=== PATIENT | female | born 1930 | race Caucasian/White ===

== ENCOUNTER → 2016-09-30 | Outpatient (CLI) | payer OTHER ==
[~2016-09-30] MED LIST: CALC500C3 PO; CHOL100027 PO; CYAN3INJ IM; CYNI1000 IM; DABI150C PO; DIGO0.122 PO; DILT120C PO; DOCU-94 PO; ESCI1TAB9 PO; FSM70 PO; HYDR-5688 PO; LEVO-217 PO; LEVO150T PO; LNX125 PO; LOPE1CAP6 PO; MAGN1TAB19 PO; METF-383 PO; METO100T14 PO; MULT-190 PO; MULTCAP7 PO; MULTTAB66 PO; OMEP40CA41 PO; PRVHFAIN INH; TYL325X PO
[2016-09-30 18:31] LABS: URINE APPEARANCE CLEAR (CLEAR); URINE BILIRUBIN NEG (NEG); URINE COLOR YELLOW; URINE EPITHELIAL CELL AUTO 0-5 /lpf (0-5); URINE NITRITE NEG (NEG); URINE PH 7.5 (4.5-7.5); URINE SPECIFIC GRAVITY 1.007 (1.000-1.030); UROBILINOGEN NEG (NEG)
[2016-09-30 18:35] LABS: MANUAL MICROSCOPIC REQUIRED? NO; REVIEW REQ? NO
== END | disposition home or self-care (01) ==
LOC: C.LABSPEC 10:34
PROVIDERS: ATTEND Family Medicine
DX: R41.0 Disorientation, unspecified (principal)

== ENCOUNTER 2016-11-24 13:56 | Inpatient (IN) | payer OTHER ==
[~2016-11-24] VITALS: Ht 162.6 cm; Wt 50.0 kg
[~2016-11-24 13:56] MED LIST changes: -CYNI1000 IM; -FSM70 PO; -HYDR-5688 PO; -LEVO150T PO; -LNX125 PO; -MULT-190 PO; -MULTTAB66 PO
[2016-11-24] MEDS ORDERED: ONDANSETRON INJ 2 MG/ML 2 ML VIAL IV STA (14:32)
[2016-11-24] MEDS ORDERED: MoRPHine SULFATE 2 MG/ML CARP IV STA (14:32)
[2016-11-24] MEDS ORDERED: SODIUM CHLORIDE 0.9% 1000ML 1,000 ML IV ONE (14:45)
--- NOTE | 2016-11-24 14:47 | EMERGENCY ROOM VISIT NOTE ---
ED Visit Note First contact with patient: 14:05 I did evaluate and examine this patient myself. I did guide management for the patient. I agree with the PA's assessment as discussed. Please see the PAs dictation for further details. I did independently review the x-rays and blood work. The patient has a hip fracture. She will be hospitalized.
[2016-11-24 15:08] LABS: HEMATOCRIT 39.2 % (37-47); MEAN CELL VOLUME 88.7 fL (80-100); MEAN CORPUSCULAR HEMOGLOBIN 30.5 pg (25-34); MEAN CORPUSCULAR HGB CONC 34.4 g/dl (32-36); MEAN PLATELET VOLUME 10.1 fL (7.4-10.4); PLATELET COUNT 309 K/uL (130-400); RED BLOOD COUNT 4.42 M/uL (4.2-5.4); WHITE BLOOD COUNT 10.47 K/uL (4.8-10.8)
[2016-11-24] MEDS ORDERED: LNX125 PO (15:11)
[2016-11-24] MEDS ORDERED: CYNI1000 IM (15:11)
[2016-11-24] MEDS ORDERED: LEVO150T PO (15:11)
[2016-11-24] MEDS ORDERED: MULTTAB66 PO (15:11)
--- NOTE | 2016-11-24 15:12 | DIAGNOSTIC IMAGING REPORT ---
CHEST ONE VIEW PORTABLE CLINICAL HISTORY: Right hip fracture. PREOPERATIVE CHEST COMPARISON STUDY: 02/27/2016 FINDINGS: The cardiac and mediastinal contours remain stable. There is a right subclavian dual-chamber central venous pacemaker present. There is no failure. There is no focal pulmonary consolidation. No pleural effusions are visualized.[ IMPRESSION: No active disease in the chest. Electronically signed by: Piyush Hitchcock M.D. 11/24/2016 3:11 PM Dictated Date/Time: 11/24/2016 3:10 PM
[2016-11-24 15:26] LABS: BUN/CREATININE RATIO 14.7 (10-20); CALCIUM 9.6 mg/dl (8.5-10.1); CREATININE 1.1 mg/dl (0.60-1.20)
[2016-11-24 15:28] LABS: URINE APPEARANCE CLEAR (CLEAR); URINE BILIRUBIN NEG (NEG); URINE COLOR YELLOW; URINE EPITHELIAL CELL AUTO >30 /lpf (0-5); URINE NITRITE NEG (NEG); URINE SPECIFIC GRAVITY 1.016 (1.000-1.030); UROBILINOGEN NEG (NEG)
[2016-11-24 15:35] LABS: MANUAL MICROSCOPIC REQUIRED? NO; REVIEW REQ? YES
[2016-11-24] MEDS ORDERED: ALUMINUM/MAGNESIUM/SIMETH (MAALOX MAX) 30 ML UDC PO PRN (16:15)
[2016-11-24] MEDS ORDERED: MoRPHine SULFATE 2 MG/ML CARP IV PRN (16:15)
[2016-11-24] MEDS ORDERED: ONDANSETRON INJ 2 MG/ML 2 ML VIAL IV PRN (16:15)
[2016-11-24] MEDS ORDERED: MAGNESIUM HYDROXIDE SUSP 30 ML UDC PO PRN (16:15)
[2016-11-24] MEDS ORDERED: DEXTROSE 50% 50 ML SYR IV PRN (16:30)
[2016-11-24] MEDS ORDERED: GLUCAGON FOR INJ 1 MG VIAL SQ PRN (16:30)
[2016-11-24] MEDS ORDERED: GLUCOSE 10 TABS/TUBE PO PRN (16:30)
[2016-11-24] MEDS ORDERED: CALCIUM CARBONATE 500 MG CHEWABLE PO PRN (16:30)
[2016-11-24] MEDS ORDERED: GLUCOSE 40% GEL 15 GM TUBE PO PRN (16:30)
[2016-11-24] MEDS ORDERED: POLYETHYLENE (MIRALAX) 17 GM PACK PO PRN (16:45)
[2016-11-24] MEDS ORDERED: DOCUSATE SODIUM 100 MG CAP PO PRN (16:45)
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
[2016-11-24 17:13] LABS: INR 1.3 (0.9-1.1); PARTIAL THROMBOPLASTIN RATIO 1.9; PROTHROMBIN TIME (PATIENT) 13.7 SECONDS (9.0-12.0)
[2016-11-24] MEDS ORDERED: ACETAMINOPHEN 325 MG TAB PO PRN (17:30)
[2016-11-24] MEDS ORDERED: HYDROCODONE/ACETAMOPHEN 5/325MG TAB PO PRN (17:30)
[2016-11-24 18:00] VITALS: BP 171/78; PULSE 65; TEMP 36.8; O2SAT 94
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
[2016-11-24 18:40] VITALS: BP 171/78; PULSE 65; TEMP 36.8; O2SAT 94; Ht 162.6 cm; Wt 50.0 kg
[2016-11-24] MEDS: INSULIN ASPART 100 UNITS/ML 3 ML PEN SC SCH (21:00)
[2016-11-24] MEDS: METOPROLOL TARTRATE 100 MG TAB PO SCH (21:00)
--- NOTE | 2016-11-24 22:03 | EMERGENCY ROOM VISIT NOTE ---
ED Visit Note First contact with patient: 14:05 Chief Complaint: Hip fracture. History of Present Illness: Ms. Gale is an 86-year-old white female who is brought into the ED via wheelchair accompanied by her daughter. Patient and daughter reports that she has been feeling fine and yesterday she was at her assisted living facility when another client accidentally knocked her over on a motorized wheelchair. There was no reported of head strike or loss of consciousness at the time of the injury. She did fall onto her right elbow and right hip. She immediately complained of pain in the right elbow. Daughter picked her mother [facility] earlier today and the patient was seen at her PCPs office. They were sent to the hospital for x-rays of her elbow and hip. She was found to have no fractures in her elbow but a right subcapital hip fracture but no dislocation. Daughter reports that her PCP office was contacted who contacted her orthopedic physician's office, [facility], and was told to bring her mother to the emergency department. Currently patient is complaining of right hip and elbow pain. She currently describes her pain as a sharp sensation in both areas. She rates her overall discomfort at 6/10. She denies radiation of her hip or shoulder pain. Both areas hurt with palpation and all attempts of movement. She has not had any medication for pain prior to arrival at the hospital. Additionally during my review of symptoms she also reports that she felt short of breath. She does not remember when this started. Daughter reports she had not reported this earlier. She denies any associated headache, dizziness, lightheadedness, visual changes, hearing changes, difficulty speaking, difficulty swallowing, difficulty coordinating body movements, nausea, vomiting, chest pain, nausea, vomiting, extremity weakness/numbness. Review of Systems: As noted above in history of present illness. All body systems were reviewed and found to be negative as noted above. Past Medical History: (1) Atrial fibrillation (2) Bronchitis (3) DIAB NAT WO COMPL, TYPE II OR UNSPEC TYPE, NOT UNCNTRLD (4) Hip fracture (5) HYPERTENSION NOS (6) HYPOTHYROIDISM NOS (7) MACULAR DEGENERATION NOS (8) PERSONAL HX OF TIA,& CEREBRAL INFARCTION W/OUT RES DEFICITS (9) PURE HYPERCHOLESTEROLEM Current Medications: Medications Dose Route/Sig Max Daily Dose Days Date Category Digoxin 0.125 Mg Tab 0.125 Mg PO MWF 11/24/16 Reported Cyanocobalamin 1,000 Mcg/Ml Inj 1,000 Mcg IM MONTHLY 11/24/16 Reported I-Ruth (Multiple Vitamins W/ Minerals) 1 Tab Tab 1 Tab PO BID 11/24/16 Reported Synthroid (Levothyroxine Sodium) 150 Mcg Tab 150 Mcg PO DAILY 11/24/16 Reported Colace (Docusate Sodium) 100 Mg Cap 100 Mg PO BID PRN 30 05/31/16 Reported Tums (Calcium Carbonate (Antacid)) 500 Mg Chw 500 Mg PO TID PRN 05/31/16 Reported Vitamin D 1000 Unit (Cholecalciferol) 1,000 Unit Cap 1,000 Inter.unit PO DAILY 02/26/16 Reported Anti-Diarrheal (Loperamide Hcl) 2 Mg Cap 2 Mg PO DAILY 02/26/16 Reported Prilosec (Omeprazole) 40 Mg Cap 40 Mg PO DAILY 02/26/16 Reported Tylenol (Acetaminophen) 325 Mg Tab 650 Mg PO Q6H PRN 04/21/14 Rx Lopressor (Metoprolol Tartrate) 100 Mg Tab 100 Mg PO BID 04/15/14 Reported Magnesium Oxide (Magnesium Oxide (Mg Supplement) 400 Mg Tab 400 Mg PO BID 04/15/14 Reported Lexapro (Escitalopram Oxalate) 10 Mg Tab 10 Mg PO DAILY 04/15/14 Reported Diltiazem Hcl Er (Diltiazem Hcl Coated Beads) 120 Mg Cap 120 Mg PO DAILY 04/15/14 Reported Pradaxa (Dabigatran Etexilate Mesylate) 150 Mg Cap 150 Mg PO BID 02/26/14 Reported Glucophage (Metformin Hcl) 850 Mg Tab 850 Mg PO BIDM 08/31/12 Reported Allergies to Medications: Codeine, penicillin. Social History: Patient is not employed; she lives in an assisted living facility and feels safe in her home environment; she denies tobacco and alcohol use. Physical Examination: Vital Signs: Date Time Temp Pulse Resp B/P Pulse Ox O2 Delivery O2 Flow Rate FiO2 11/24/16 16:00 168/81 11/24/16 15:56 60 18 85 11/24/16 15:50 61 20 165/58 95 Room Air 11/24/16 15:50 165/58 11/24/16 15:21 175/57 11/24/16 15:20 62 20 175/57 96 Room Air 11/24/16 14:56 64 21 93 11/24/16 14:37 61 11/24/16 14:37 177/76 11/24/16 14:34 36.7 60 20 177/76 Room Air 11/24/16 14:08 196/78 GENERAL: 86-year-old female in mild to moderate distress due to pain, nontoxic- appearing, afebrile and hemodynamically stable. NEUROLOGICAL: Awake, alert and oriented to person, place and time. Answering questions appropriately and following commands. Good hand eye coordination. No focal motor sensory deficits. Cranial nerves II through XII grossly intact. SKIN: Warm, dry and pink. No open soft tissue trauma noted. HEENT: Skull: Atraumatic and normocephalic. No bony deformity, depressions or tenderness. No raccoon's eyes or tipton signs. No drainage from the ears or the nostril; no hemotympanum. Face: Small contusion noted over the lateral supraorbital ridge on the right with a small amount of ecchymosis. There is no bony deformity or tenderness. PERRLA. EOMI without nystagmus. Sclera white and conjunctiva pink. No malocclusion. No intraoral trauma. Airway patent. Speech normal. No lymphadenopathy. Trachea midline. No jugular venous distention. BACK: No tenderness over the bony cervical, thoracic and lumbar spine. No tenderness throughout the paraspinous muscles. No CVA tenderness. THORAX: Lungs sounds are clear to auscultation and equal bilaterally with symmetrical chest wall. No wheezing, rales or rhonchi. No crepitus, tenderness , subcutaneous air or deformities noted. HEART: Regular rate and rhythm. No gallops, rubs or murmurs are appreciated. ABDOMEN: Flat, soft and nontender. Positive bowel sounds in all quadrants. No guarding, rigidity or organomegaly. PELVIS: Stable and nontender to compression and rock. RIGHT UPPER EXTREMITY: No gross bony deformity. No tenderness over the shoulder or humerus. Moderate tenderness and large hematoma over the elbow. Within the area of ecchymosis there is a small clear fluid vesicle measuring approximately 1 cm. She has crossed tenderness throughout the elbow but I do not appreciate any bony deformity or crepitus. No tenderness throughout the forearm, wrist or hand. Hand is warm and pink and capillary refill is brisk. Pulses are present and she was able to distinguish light sensations through all dermatomes. LEFT UPPER EXTREMITY: No gross bony deformity. No tenderness throughout the shoulder, humerus, elbow, forearm, wrist or hand. Distal pulses are intact. Capillary refill is brisk and she is able to distinguish light sensations through all dermatomes. RIGHT LOWER EXTREMITY: No gross bony deformity. No shortening or malrotation. Moderate tenderness over the proximal femur without palpable deformity or crepitus. I do not appreciate any swelling or ecchymosis. No tenderness throughout the distal half of the fibula, knee, lower leg, ankle or foot. With the knee stabilized patient has full range of motion in plantar flexion and dorsiflexion of the ankle and flexion and extension of all toes. Throughout the foot the skin was warm and pink and capillary refill is brisk. Distal pulses were intact. She is able to distinguish light sensations through all dermatomes of the foot. LEFT LOWER EXTREMITY: No gross bony deformity. No shortening or malrotation. No tenderness throughout the hip, thigh, knee, lower leg, ankle or foot. Throughout the foot the skin was warm and pink and capillary refill is brisk. Distal pulses were intact. She was able to distinguish light sensations through all dermatomes of the foot. Proximal humeral ED Course: Patient is assessed as noted above. Laboratory Testing: Test 11/24/16 14:30 11/24/16 14:55 Range/Units Urine Color YELLOW Urine Appearance CLEAR CLEAR Urine pH 8.0 4.5-7.5 Urine Specific [place] 1.016 1.000-1.030 Urine Protein NEG NEG Urine Glucose (UA) NEG NEG Urine Ketones NEG NEG Urine Occult Blood NEG NEG Urine Nitrite NEG NEG Urine Bilirubin NEG NEG Urine Urobilinogen NEG NEG Urine Leukocyte Esterase MODERATE NEG Urine WBC (Auto) 10-30 0-5 /hpf Urine RBC (Auto) 0-4 0-4 /hpf Urine Hyaline Casts (Auto) 1-5 0-5 /lpf Urine Epithelial Cells (Auto) >30 0-5 /lpf Urine Bacteria (Auto) 1+ NEG Urine Renal Epithelial Cells 0-5 /lpf Urine Yeast (Auto) NONE PRSENT White Blood Count 10.47 4.8-10.8 K/uL Red Blood Count 4.42 4.2-5.4 M/uL Hemoglobin 13.5 12.0-16.0 g/dL Hematocrit 39.2 37-47 % Mean Corpuscular Volume 88.7 80-100 fL Mean Corpuscular Hemoglobin 30.5 25-34 pg Mean Corpuscular Hemoglobin Concent 34.4 32-36 g/dl RDW Standard Deviation 45.0 36.4-46.3 fL RDW Coefficient of Variation 13.9 11.5-14.5 % Platelet Count 309 130-400 K/uL Mean Platelet Volume 10.1 7.4-10.4 fL Prothrombin Time 13.7 9.0-12.0 SECONDS Prothromb Time International Ratio 1.3 0.9-1.1 Activated Partial Thromboplast Time 49.7 21.0-31.0 SECONDS Partial Thromboplastin Ratio 1.9 Sodium Level 136 136-145 mmol/L Potassium Level 4.0 3.5-5.1 mmol/L Chloride Level 98 98-107 mmol/L Carbon Dioxide Level 28 21-32 mmol/L Anion Gap 10.0 3-11 mmol/L Blood Urea Nitrogen 16 7-18 mg/dl Creatinine 1.10 0.60-1.20 mg/dl Est Creatinine Clear Calc Drug Dose 28.4 ml/min Estimated GFR () 52.3 Estimated GFR (Non- 45.1 BUN/Creatinine Ratio 14.7 10-20 Random Glucose 112 70-99 mg/dl Calcium Level 9.6 8.5-10.1 mg/dl Digoxin Level 0.7 0.8-2.0 ng/ml Right Hip X-Rays: Was reviewed by myself and read by the radiologist and shows a subcapital hip fracture without dislocation. Right Elbow X-Rays: Were reviewed by myself and read by the radiologist showing no fractures or dislocations. No displacement of the fat pads. Moderate posterior soft tissue edema. Chest X-Ray: Was read by myself and the radiologist and shows no acute infiltrates, effusions or pneumothorax. No signs of heart failure. Normal heart silhouette remains stable. No bony abnormalities. Pacemaker is present. Patient was hydrated with normal saline and received 2 mg of morphine IV for pain. Patient was reassessed multiple times during her stay in the emergency department. Patient's case was reviewed with Dr. Alexander; he apparently assessed the patient and we agreed on diagnostic approach, treatment, disposition and plan. Patient's case was consulted with Ms. Alisia Cortez PA-C orthopedics. Patient's case was reviewed with Dr. Schneider, hospitalist, for medical admission. Patient and daughter were educated about tonight's findings. Clinical Impression: Right subcapital hip fracture. Right elbow contusion. Disposition and Plan: Patient be brought in the hospital by the hospitalist with consultation with orthopedics; please see their notes and orders for final disposition and plan.
[2016-11-24] MEDS: CEROVITE ADV FORMULA TAB PO SCH (22:20)
[2016-11-24] MEDS: MAGNESIUM OXIDE 400 MG TAB PO SCH (22:21)
[2016-11-24 23:30] VITALS: BP 128/65; PULSE 60; TEMP 36.9; O2SAT 95
[2016-11-25] MEDS: LEVOTHYROXINE 150 MCG TAB PO SCH (05:58)
[2016-11-25 07:23] LABS: ESTIMATED AVERAGE GLUCOSE 143 mg/dl; HA1C FLAG Normal (Normal)
[2016-11-25 07:38] VITALS: BP 152/77; PULSE 65; TEMP 36.8; O2SAT 95
[2016-11-25] MEDS: INSULIN ASPART 100 UNITS/ML 3 ML PEN SC SCH ×4 (08:00→20:49)
--- NOTE | 2016-11-25 08:37 | Orthopedic Progress Note ---
Orthopedic Progress Note Date of Service Nov 25, 2016. Subjective Reports: feeling well, pain controlled w PO medications, Denies: SOB, calf pain , complaints, nausea / vomiting Additional Notes: States right elbow feels a little better. No pain at rest in right hip Objective calves soft nontender, N/V intact, capillary refill less than 2 sec. (right upper and lower extremity), dressing C/D/I, A&O x3, toes mobile Right elbow dressings removed, hematoma still evident, no increase in size, tender to palpation, fracture blisters still there, nothing new, tolerates full ROM right elbow, distal pulses intact, compartments soft, tolerates wrist extension and flexion, no distal edema right arm. Date Time Temp Pulse Resp B/P Pulse Ox O2 Delivery O2 Flow Rate FiO2 11/25/16 07:38 36.8 65 16 152/77 95 Room Air 11/25/16 00:50 Nasal Cannula 2.0 11/24/16 23:30 36.9 60 16 128/65 95 Room Air 11/24/16 18:40 94 Nasal Cannula 2.0 11/24/16 18:40 36.8 65 18 171/78 Nasal Cannula 2.0 11/24/16 18:00 36.8 65 18 171/78 94 Nasal Cannula 2.0 11/24/16 17:56 66 16 11/24/16 17:00 168/67 11/24/16 16:56 61 19 11/24/16 16:27 168/81 11/24/16 16:00 168/81 11/24/16 15:56 60 18 85 11/24/16 15:50 61 20 165/58 95 Room Air 11/24/16 15:50 165/58 11/24/16 15:21 175/57 11/24/16 15:20 62 20 175/57 96 Room Air 11/24/16 14:56 64 21 93 11/24/16 14:37 61 11/24/16 14:37 177/76 11/24/16 14:34 36.7 60 20 177/76 Room Air 11/24/16 14:08 196/78 Laboratory Results 24 Hours: Test 11/24/16 14:55 Hematocrit 39.2 % Hemoglobin 13.5 g/dL Prothromb Time International Ratio 1.3 Prothrombin Time 13.7 SECONDS Assessment & Plan Assessment: 1. Contusion with hematoma right elbow/forearm 2. Right subcapital hip fracture Plan: Dressings changed right elbow today, new pressure dressing applied. Allowed for activities as tolerated right arm. Continue Bedrest due to right hip fracture Plan for ORIF vs. Hemiarthroplasty right hip on 11/26/[address] Edwards No anticoagulation due to surgery 11/26/16. Pradaxa currently held. Apply SCD's bilateral lower extremities Tolerating diet. NPO p MN. Pain medication as prescribed. Will discuss findings with Dr. Edwards. Consent for surgery on chart.
[2016-11-25] MEDS: CHOLECALCIFEROL 1000 INTER.UNIT TAB PO SCH (10:11)
[2016-11-25] MEDS: METOPROLOL TARTRATE 100 MG TAB PO SCH ×2 (10:11→20:50)
[2016-11-25] MEDS: CEROVITE ADV FORMULA TAB PO SCH ×2 (10:11→20:50)
[2016-11-25] MEDS: PANTOprazole SOD 40 MG TAB PO SCH (10:12)
[2016-11-25] MEDS: MAGNESIUM OXIDE 400 MG TAB PO SCH ×2 (10:13→20:50)
[2016-11-25] MEDS: DILTIAZEM HCL 120 MG CAPCR PO SCH (10:14)
[2016-11-25] MEDS: LOPERAMIDE HCL 2 MG CAP PO SCH (10:15)
[2016-11-25] MEDS: ESCITALOPRAM OXALATE 10 MG TAB PO SCH (10:15)
[2016-11-25] MEDS: DIGOXIN 0.125 MG TAB PO SCH (10:17)
[2016-11-25] MEDS: SODIUM CHLOR 0.45% + 20MEQ KCL 1,000 ML IV SCH ×2 (11:00→20:42)
[2016-11-25 11:04] LABS: INR 1.1 (0.9-1.1)
[2016-11-25] MEDS: TRAMADOL HCL 50 MG TAB PO PRN (11:23)
[2016-11-25] MEDS: ACETAMINOPHEN 325 MG TAB PO PRN (11:24)
[2016-11-25] MEDS ORDERED: PHARMACY GLYCEMIC MGMT CONSULT PRN (12:45)
--- NOTE | 2016-11-25 13:24 | Hospitalist Progress Note ---
Hospitalist Progress Note Date of Service Nov 25, 2016. Subjective Pt evaluation today including: conversation w/ patient, physical exam, chart review, lab review, review of studies, review of inpatient medication list Patient is feeling ok. Her pain is controlled. She has no complaints or concerns. Nursing reported that overnight she had decreased urine output. I ordered IVF. She had been noticing urinary frequency as outpatient to which I feel we should cover her for uti until I have culture confirmation. Additional Comments: A 10 system review was performed and all were negative. Positives were placed in the subjective section. Objective Vital Signs Date Time Temp Pulse Resp B/P Pulse Ox O2 Delivery O2 Flow Rate FiO2 11/25/16 10:17 72 11/25/16 08:00 Nasal Cannula 2.0 11/25/16 07:38 36.8 65 16 152/77 95 Room Air 11/25/16 00:50 Nasal Cannula 2.0 11/24/16 23:30 36.9 60 16 128/65 95 Room Air 11/24/16 18:40 94 Nasal Cannula 2.0 11/24/16 18:40 36.8 65 18 171/78 Nasal Cannula 2.0 11/24/16 18:00 36.8 65 18 171/78 94 Nasal Cannula 2.0 11/24/16 17:56 66 16 11/24/16 17:00 168/67 11/24/16 16:56 61 19 11/24/16 16:27 168/81 11/24/16 16:00 168/81 11/24/16 15:56 60 18 85 11/24/16 15:50 61 20 165/58 95 Room Air 11/24/16 15:50 165/58 11/24/16 15:21 175/57 11/24/16 15:20 62 20 175/57 96 Room Air 11/24/16 14:56 64 21 93 11/24/16 14:37 61 11/24/16 14:37 177/76 11/24/16 14:34 36.7 60 20 177/76 Room Air 11/24/16 14:08 196/78 Physical Exam Notes: GEN: Awake, alert. Not in acute distress HEENT: Tm's intact, no inflammation, EOMI, PERRLA, MMM Neck: Soft, supple Lungs: CTA b/l, no r/r/w Heart: REG, nrl S1S2 without murmurs, rubs or gallops. pacemaker in the left upper chest. Abdomen: Soft, NT, ND, + BS EXT: No C/C/E. Right arm is wrapped over the elbow. NEURO: CN's II-XII grossly intact, non-focal Skin: warm, dry, no rashes PSYCH: pleasant, cooperative. Laboratory Results Last 24 Hours Test 11/24/16 14:30 11/24/16 14:55 11/24/16 16:24 11/24/16 17:40 Urine Color YELLOW Urine Appearance CLEAR Urine pH 8.0 Urine Specific [place] 1.016 Urine Protein NEG Urine Glucose (UA) NEG Urine Ketones NEG Urine Occult Blood NEG Urine Nitrite NEG Urine Bilirubin NEG Urine Urobilinogen NEG Urine Leukocyte Esterase MODERATE Urine WBC (Auto) 10-30 /hpf Urine RBC (Auto) 0-4 /hpf Urine Hyaline Casts (Auto) 1-5 /lpf Urine Epithelial Cells (Auto) >30 /lpf Urine Bacteria (Auto) 1+ Urine Renal Epithelial Cells /lpf Urine Yeast (Auto) White Blood Count 10.47 K/uL Red Blood Count 4.42 M/uL Hemoglobin 13.5 g/dL Hematocrit 39.2 % Mean Corpuscular Volume 88.7 fL Mean Corpuscular Hemoglobin 30.5 pg Mean Corpuscular Hemoglobin Concent 34.4 g/dl RDW Standard Deviation 45.0 fL RDW Coefficient of Variation 13.9 % Platelet Count 309 K/uL Mean Platelet Volume 10.1 fL Prothrombin Time 13.7 SECONDS Prothromb Time International Ratio 1.3 Activated Partial Thromboplast Time 49.7 SECONDS Partial Thromboplastin Ratio 1.9 Sodium Level 136 mmol/L Potassium Level 4.0 mmol/L Chloride Level 98 mmol/L Carbon Dioxide Level 28 mmol/L Anion Gap 10.0 mmol/L Blood Urea Nitrogen 16 mg/dl Creatinine 1.10 mg/dl Est Creatinine Clear Calc Drug Dose 28.4 ml/min Estimated GFR () 52.3 Estimated GFR (Non- 45.1 BUN/Creatinine Ratio 14.7 Random Glucose 112 mg/dl Calcium Level 9.6 mg/dl Digoxin Level 0.7 ng/ml Estimated Average Glucose 143 mg/dl Hemoglobin A1c 6.6 % Bedside Glucose 130 mg/dl Test 11/24/16 22:21 11/25/16 08:02 11/25/16 10:50 11/25/16 11:24 Bedside Glucose 146 mg/dl 161 mg/dl 165 mg/dl Prothrombin Time 12.0 SECONDS Prothromb Time International Ratio 1.1 Assessment and Plan 1) Right hip fracture - Ortho plans for repair tomorrow. 2) Right elbow contusion - dressing in place. Was drained by ortho. 3) UTI - supporting info. + leuk est, patient had frequency prior to hospital stay, has history of UTIs. I will order IV Rocephin and have a urine culture sent. 4) A. Flutter - Pradaxa held. rate has been stable. She does have a pacemaker. 5) Type II Dm - Glucophage held, currently on SS insulin, will ask pharmacy to manage as I anticipate elevations due to the stress of surgery. Also she will be NPO after midnight. 6) HTN - mildly elevated - I added IV hydralazine for high coverage. DVT prophylaxis: TEDs and SCDs. After surgery will resume the Pradaxa (taking for a.fib) when ortho recommends. I feel the patient is an acceptable surgical risk for the planned procedure of right hip ORIF under general anaesthesia. Continued [facility] stay due to: inadequate oral pain control, ambulation difficulties Discharge planning: uncertain
[2016-11-25 13:40] VITALS: O2SAT 78
[2016-11-25 13:41] VITALS: O2SAT 92
--- NOTE | 2016-11-25 13:54 | Pharmacy Progress Note ---
Glycemic Control Intl Consult Date of Service Nov 25, 2016. Scope Glycemic Pharmacist consulted by Dr Frazier on 11/25/16 for glycemic control and to write orders per [facility] inpatient glycemic control protocol Objective Weight (Kilograms): 50.000 Accuchecks BSG (last 24hrs): Test 11/24/16 14:55 11/24/16 17:40 11/24/16 22:21 11/25/16 08:02 Random Glucose 112 mg/dl (70-99) Bedside Glucose 130 mg/dl (70-90) 146 mg/dl (70-90) 161 mg/dl (70-90) Test 11/25/16 11:24 Bedside Glucose 165 mg/dl (70-90) Laboratory Data (last 24hrs) Test 11/24/16 14:55 11/24/16 16:24 Anion Gap 10.0 mmol/L BUN/Creatinine Ratio 14.7 Blood Urea Nitrogen 16 mg/dl Creatinine 1.10 mg/dl Potassium Level 4.0 mmol/L Sodium Level 136 mmol/L White Blood Count 10.47 K/uL Hemoglobin A1c 6.6 % HbA1c Test 11/24/16 16:24 Hemoglobin A1c 6.6 % (4.5-5.6) H Recent Pertinent Medications Outpatient Anti-diabetic Regimen: * Metformin 850mg PO BIDM The patient is currently receiving: * Basal insulin: N/A - none indicated at this time * Correctional Insulin: Novolog Correction per scale ACHS Goal Range: Low 140 mg/dL - High 180 mg/dL Correction Factor: 30 mg/dL/unit * Prandial insulin: Per carb ratio of 1 unit per -- grams CHO consumed * Oral Agents: On hold for admission Risk Factors for Insulin Resistance: * Infection * Upcoming Surgery 11/26/16 * Diet Assessment & Plan ASSESSMENT: * 86yo T2DM female with adequately controlled diabetes per recent A1c * Despite adequate control, outpatient regimen of metformin may need adjusted at the time of discharge d/t renal impairment. Metformin should not be used with CrCl < 30ml/min * Pt may not need any outpatient anti-diabetic regimen at discharge as A1c is below goal based on age/co-morbidities * BSGs adequately controlled since admission with correctional insulin only * Pt is scheduled for ortho surgery tomorrow AM --> will be NPO after midnight * BSGs may increase s/p surgery d/t stress &/or UTI/infection * ADA & AACE recommend a goal blood sugar range 140-180 mg/dl for the majority of critically ill & non-critically ill patients. However, more stringent targets may be selected in individual cases. PLAN FOR INPATIENT GLYCEMIC CONTROL: No changes at this time. Will re-evaluate post-operatively. * Hold outpatient oral diabetes medications * Start basal insulin for persistent hyperglycemia * BSG > 200mg/dl * NOVOLOG per scale ACHS or Q6hrs while NPO * Goal Range: Low 140 mg/dL - High 180 mg/dL * Correction Factor: 30 mg/dL/unit * Start Nutritional / Prandial insulin per carb ratio of 1 unit per 16 grams CHO consumed IF NEEDED POST OPERATIVELY FOR HYPERGLYCEMIA. * Please note that the plan above was derived based on current level of insulin resistance and hospital stress. These recommendations are appropriate for inpatient admission only. Plan of care upon discharge will need to be reassessed to avoid potential outpatient hypo/hyperglycemia. Thank you.
--- NOTE | 2016-11-25 13:58 | Progress Note ---
Progress Note Date of Service Nov 25, 2016. Progress Note Patient is an 86 year old F who had a witnessed fall @ longterm and a R hip fx. Scheduled for ORIF R hip tomorrow in OR with Dr Edwards. 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 It is unclear what if any underlying rhythm the patient has, but on her ECG this admission, she is 100% paced. She also has chronic paroxysmal Afib, rate controlled on digoxin and cardizem, remote CVA, NIDDM, HTN, HLD, Hypothyroid, Macular degeneration. Her exam is unremarkable except for mild limitation of neck extension and some ptosis of the R eye which her daughter reports is chronic. She is requiring 2L of oxygen this admission, but has never been hypoxic and does not use O2 at her longterm. Excercise tolerance is limited by arthritis. Labs and studies were reviewed. Cardiac function was excellent in 2012 on echocardiogram. Of note she does not carry a diagnosis of CKD but her creatinine is 1.1 which is likely elevated for her age. Starting Hb is 13.5. Given her Pradaxa use on the morning of 11/24, she will likely need general anesthesia on 11/26. Any invasive monitoring may be used at the discretion of the anesthesiologist at the time of the procedure. I have ordered a T&S due to her recent anticoagulant and the nature of the surgery. Risks and benefits discussed with the patient and her daughter (POA). Thank you for the consultation.
[2016-11-25 14:25] VITALS: O2SAT 94
[2016-11-25] MEDS: CEFTRIAXONE SOD INJ 1 GM in DEXTROSE 5% ADD-VANTAGE 50ML 50 ML IV SCH (14:33)
--- NOTE | 2016-11-25 14:51 | PROGRESS NOTE ---
DATE: 11/25/2016 SUBJECTIVE: The patient is resting comfortably in bed. She is laying a little bit towards her right side. Her right elbow bothers her, but she appears to move it and use her hand readily. She has 1+ dorsalis pedis pulse and normal motor strength and sensation in the right foot. She has a right elbow hematoma. May consider surgically draining this tomorrow. Will reassess preoperatively and adjust accordingly. She has a nondisplaced impacted femoral neck fracture on the right side and planning on percutaneous screws, possible bipolar hemiarthroplasty. She will have been off of her anticoagulant Pradaxa for 2-1/2 days at the time of surgery tomorrow afternoon. She is n.p.o. after midnight.
[2016-11-25 16:00] VITALS: BP 123/64; PULSE 58; TEMP 36.5; O2SAT 96
[2016-11-25 23:31] VITALS: BP 166/73; PULSE 63; TEMP 36.5; O2SAT 97
[2016-11-25] MEDS: HydrALAZINE HCL 20 MG/ML VIAL IV. PRN (23:40)
[2016-11-26] VITALS (12 sets, daily range): BP systolic 133–163; BP diastolic 56–76; PULSE 60–84; TEMP 36.4–36.8; O2SAT 91–98
[2016-11-26] MEDS ORDERED: NURSING VERBAL MED ORDER ONE ×2 (04:30→21:45)
[2016-11-26] MEDS: LEVOTHYROXINE 150 MCG TAB PO SCH (05:55)
[2016-11-26 05:58] LABS: BASO % 0.3 %; BASO ABS # 0.03 K/uL (0-0.2); COMPLETE YES; EOS % 1.4 %; HEMATOCRIT 32.7 % (37-47); IG% 0.3 %; LYMPH % 11.6 %; LYMPH ABS # 1.04 K/uL (1.2-3.4); MEAN CELL VOLUME 89.6 fL (80-100); MEAN CORPUSCULAR HEMOGLOBIN 29.6 pg (25-34); MEAN PLATELET VOLUME 10.2 fL (7.4-10.4); NEUT % 74.4 %; PLATELET COUNT 250 K/uL (130-400); RED BLOOD COUNT 3.65 M/uL (4.2-5.4); WHITE BLOOD COUNT 8.97 K/uL (4.8-10.8)
[2016-11-26] MEDS: INSULIN ASPART 100 UNITS/ML 3 ML PEN SC SCH ×4 (06:00→21:08)
[2016-11-26 06:06] LABS: PARTIAL THROMBOPLASTIN RATIO 1.2
[2016-11-26 06:36] LABS: BUN/CREATININE RATIO 14.3 (10-20); CALCIUM 8.9 mg/dl (8.5-10.1); CREATININE 0.83 mg/dl (0.60-1.20); POTASSIUM 4.1 mmol/L (3.5-5.1)
[2016-11-26] MEDS: MAGNESIUM OXIDE 400 MG TAB PO SCH ×2 (09:00→21:05)
[2016-11-26] MEDS: CHOLECALCIFEROL 1000 INTER.UNIT TAB PO SCH (09:00)
[2016-11-26] MEDS: PANTOprazole SOD 40 MG TAB PO SCH (09:00)
[2016-11-26] MEDS: CEROVITE ADV FORMULA TAB PO SCH ×2 (09:00→21:04)
[2016-11-26] MEDS: LOPERAMIDE HCL 2 MG CAP PO SCH (09:00)
--- NOTE | 2016-11-26 09:08 | Progress Note ---
Orthopedic SOAP Note Subjective Date of Service: Nov 26, 2016. Post OP Day: 0 Reports: feeling well (all things considered ), pain controlled w PO medications , Denies: SOB, calf pain, chest pain, complaints, light headedness, nausea / vomiting, using DATABASE MANAGEMENT SPECIALIST Problem List Medical Problems: (1) Change in mental status Status: Acute (2) Dehydration Status: Acute (3) Weakness Status: Acute Objective calves soft nontender, N/V intact, capillary refill less than 2 sec., A&O x3, toes mobile pain in the right groin with any type of movement, no skin changes over the right hip, no erythema or swelling right elbow continues with swelling/hematoma proximal ulna, abrasion covered with Xeroform, NVI right upper extremity distally, reveals active motion at the right elbow Date Time Temp Pulse Resp B/P Pulse Ox O2 Delivery O2 Flow Rate FiO2 11/26/16 07:56 36.8 66 16 151/68 96 Nasal Cannula 2.0 Humidified Oxygen 11/26/16 06:00 95 Nasal Cannula 2.0 Humidified Air 11/26/16 01:36 66 135/68 11/25/16 23:31 36.5 63 16 166/73 97 Nasal Cannula 4.0 Humidified Air 11/25/16 23:30 Nasal Cannula 4.0 Humidified Oxygen 11/25/16 16:00 36.5 58 14 123/64 96 Nasal Cannula 4.0 11/25/16 16:00 Nasal Cannula 4.0 11/25/16 14:25 94 Nasal Cannula 4.0 11/25/16 13:41 92 Nasal Cannula 4.0 11/25/16 13:40 78 Room Air 11/25/16 10:17 72 Laboratory Results 24 Hours: Test 11/25/16 10:50 11/26/16 05:32 Prothromb Time International Ratio 1.1 Prothrombin Time 12.0 SECONDS White Blood Count 8.97 K/uL Red Blood Count 3.65 M/uL Hemoglobin 10.8 g/dL Hematocrit 32.7 % Mean Corpuscular Volume 89.6 fL Mean Corpuscular Hemoglobin 29.6 pg Mean Corpuscular Hemoglobin Concent 33.0 g/dl Platelet Count 250 K/uL Mean Platelet Volume 10.2 fL Neutrophils (%) (Auto) 74.4 % Lymphocytes (%) (Auto) 11.6 % Monocytes (%) (Auto) 12.0 % Eosinophils (%) (Auto) 1.4 % Basophils (%) (Auto) 0.3 % Neutrophils # (Auto) 6.66 K/uL Lymphocytes # (Auto) 1.04 K/uL Monocytes # (Auto) 1.08 K/uL Eosinophils # (Auto) 0.13 K/uL Basophils # (Auto) 0.03 K/uL Assessment 1. Contusion with hematoma right elbow/forearm 2. Right subcapital hip fracture Plan Dressings changed right elbow, pressure dressing applied. Allowed for activities as tolerated right arm. Continue Bedrest due to right hip fracture Plan for ORIF vs. Hemiarthroplasty right hip on 11/26/[address] Edwards No anticoagulation due to surgery 11/26/16. Pradaxa currently held x 2 1/2 days Apply SCD's bilateral lower extremities Vitals and labs reviewed Currently NPO Pain medication as prescribed. Will discuss findings with Dr. Edwards. Consent for surgery on chart.
[2016-11-26] MEDS: SODIUM CHLOR 0.45% + 20MEQ KCL 1,000 ML IV SCH (09:20)
[2016-11-26] MEDS: METOPROLOL TARTRATE 100 MG TAB PO SCH ×2 (09:24→21:05)
[2016-11-26] MEDS: ESCITALOPRAM OXALATE 10 MG TAB PO SCH (09:25)
[2016-11-26] MEDS: DILTIAZEM HCL 120 MG CAPCR PO SCH (09:25)
[2016-11-26] MEDS ORDERED: KETOROLAC TROMETHAMINE 30 MG/ML VIAL IV. PRN (13:15)
[2016-11-26] MEDS ORDERED: ONDANSETRON INJ 2 MG/ML 2 ML VIAL IV PRN (13:15)
[2016-11-26] MEDS ORDERED: ATROPINE SULFATE 0.1 MG/ML 5ML SYR IV PRN (13:15)
[2016-11-26] MEDS ORDERED: HYDROmorphone INJ 2 MG/ML SYR/VIAL IV PRN (13:15)
--- NOTE | 2016-11-26 13:21 | History & Physical Bridge Note ---
H&P Re-Evaluation Bridge Note: I have examined the patient, reviewed the History & Physical and in the interval since the performance of the History & Physical I have noted the following changes of clinical significance. add evacuation of right elbow hematoma: No changes noted
[2016-11-26] MEDS ORDERED: LIDOCAINE HCL 2% 2 ML VIAL (20MG/ML) ONE (13:24)
[2016-11-26] MEDS ORDERED: PROPOFOL IV EMULSION 10 MG/ML 20 ML VIAL IV ONE (13:24)
[2016-11-26] MEDS ORDERED: FENTANYL CITRATE INJ 50 MCG/1 ML 2 ML VIAL ONE (13:24)
[2016-11-26] MEDS ORDERED: ROCURONIUM BROMIDE 10 MG/ML 5 ML VIAL ONE (13:24)
[2016-11-26] MEDS ORDERED: PHENYLEPHRINE 100MCG/ML 5ML SYR ONE ×2 (13:51→14:21)
[2016-11-26] MEDS ORDERED: ACETAMINOPHEN 1000 MG/100 ML IV IV ONE (14:07)
[2016-11-26] MEDS ORDERED: CEFAZOLIN SOD 1 GM VIAL ONE ×2 (14:21→15:31)
--- NOTE | 2016-11-26 15:19 | DIAGNOSTIC IMAGING REPORT ---
RIGHT HIP OR FILMS CLINICAL HISTORY: RIGHT HIP PINNING Rightpostoperative evaluation COMPARISON STUDY: None FLUOROSCOPY TIME: 1 minute 34 seconds. FINDINGS: Right hip pain IMPRESSION: Placement of 3 pins traversing the right hip. Alignment is anatomic. Electronically signed by: Cliff Dunn M.D. 11/26/2016 3:18 PM Dictated Date/Time: 11/26/2016 3:17 PM
[2016-11-26] MEDS ORDERED: ONDANSETRON INJ 2 MG/ML 2 ML VIAL ONE (15:40)
--- NOTE | 2016-11-26 15:48 | [facility] Post Operative Brief Note ---
Immediate Operative Summary Operative Date Nov 26, 2016. Pre-Operative Diagnosis Right hip fracture Right arm hematoma Post-Operative Diagnosis Same Procedure(s) Performed Right Hip Percutaneous Pinning Evacuation Hematoma Right Arm Surgeon Dr Edwards Dial Printer Surgeon(s) Dr Geovani Aldana Estimated Blood Loss 20/10 Findings nondisplaced r hip fx/ r elbow hematoma Drains x1 elbow Anesthesia general Complication(s) None Disposition Recovery Room / PACU
[2016-11-26] MEDS ORDERED: GLYCOPYRROLATE INJ 0.2 MG/ML VIAL ONE (16:17)
[2016-11-26] MEDS ORDERED: NEOSTIGMINE METHYLSULFATE 5 MG/5 ML SYR ONE (16:17)
--- NOTE | 2016-11-26 16:23 | [facility] Operative Report ---
Operative Report Operative Date Nov 26, 2016. Pre-Operative Diagnosis Right hip fracture Right arm hematoma Post-Operative Diagnosis Right subcapital neck fracture, right arm hematoma Procedure(s) Performed ORIF right femur fracture, Evacuation, I&D right elbow hematoma Surgeon Dr Edwards Sheet Tailer Surgeon(s) Dr Geovani Aldana, Alisia Cortez PA-C Estimated Blood Loss TOTAL 210ML Findings right subcapital femur fracture, hematoma right elbow Specimens NONE Drains x1 elbow Anesthesia general Complication(s) None Disposition Recovery Room / PACU Indications Patient is a 86 year old female, s/p fall, sustained right hip fracture and right elbow hematoma. She was admitted for care, surgical intervention for ORIF of her right hip and evacuation of her right elbow hematoma was recommended. She agreed to proceed, surgery was scheduled. Description of Procedure Patient was taken to the operating room, given IV Ancef for surgical prophylaxis. Time out performed, prepped and draped in routine sterile fashion. I was present and assisted for the evacuation of the hematoma only. Patient was awakened and taken to the recovery room in stable condition. Please see Dr. Edwards's operative report for further detail. I attest to the content of the Intraoperative Record and any orders documented therein. Any exceptions are noted below.
--- NOTE | 2016-11-26 17:02 | Anesthesiology Progress Note ---
Anesthesia Post Op Note Date & Time Nov 26, 2016 at 17:00 Vital Signs Pain Intensity: 0.0 Vital Signs Past 12 Hours Date Time Temp Pulse Resp B/P Pulse Ox O2 Delivery O2 Flow Rate FiO2 11/26/16 16:40 36.2 60 16 170/65 90 Nasal Cannula 4 11/26/16 16:30 61 14 193/58 87 Nasal Cannula 4 11/26/16 16:20 61 20 185/73 97 Mask 10 11/26/16 16:10 62 20 180/68 98 Mask 10 11/26/16 16:04 36.6 70 20 182/72 95 Mask 10 11/26/16 11:31 36.7 60 18 133/56 97 Room Air 11/26/16 10:00 Nasal Cannula 4.0 11/26/16 09:23 84 157/76 11/26/16 07:56 36.8 66 16 151/68 96 Nasal Cannula 2.0 Humidified Oxygen 11/26/16 07:40 Nasal Cannula 2.0 Humidified Oxygen 11/26/16 06:00 95 Nasal Cannula 2.0 Humidified Air Notes Mental Status: alert / awake / arousable, participated in evaluation Pt Amnestic to Procedure: Yes Nausea / Vomiting: adequately controlled Pain: adequately controlled Airway Patency, RR, SpO2: stable & adequate BP & HR: stable & adequate Hydration State: stable & adequate Anesthetic Complications: no major complications apparent Patient with mild confusion postoperatively but per report she had some confusion prior to OR. Denied pain and nausea. Denied CP or shortness of breath. Oriented to self and knows her daughter. Moves all extremities and no pupil asymmetry or facial drooping noted (checked given prior hx/o CVA). VSS. Appears stable for transfer as her mental state likely 2/2 major surgery in elderly patient under GA. Will be monitored on floor.
[2016-11-26] MEDS: CEFTRIAXONE SOD INJ 1 GM in DEXTROSE 5% ADD-VANTAGE 50ML 50 ML IV SCH (17:29)
--- NOTE | 2016-11-26 17:47 | OPERATIVE REPORT ---
DATE OF OPERATION: 11/26/2016 PREOPERATIVE DIAGNOSES: Right elbow hematoma and a nondisplaced femoral neck fracture, right side. POSTOPERATIVE DIAGNOSES: Same. PROCEDURE: Irrigation, debridement, and evacuation of right elbow hematoma, closed reduction percutaneous pinning of nondisplaced right hip fracture. SURGEON: Dr. Werner Edwards. GLUE MAKER: Geovani Aldana MD, fellow and Alisia Cortez PA-C. ANESTHESIA: General. INDICATION FOR PROCEDURE: She is an 86-year-old female status post fall 2 days ago resulting in a right elbow hematoma. Aspiration was attempted without complete relief of pressure. She also has a nondisplaced transverse cervical right femoral neck fracture with valgus impaction and no anterior or posterior malalignment. Treatment options, risks and benefits were discussed and she and her family elected to proceed with pinning of her hip fracture and evacuation of her elbow hematoma. PROCEDURE IN DETAIL: Informed consent was obtained. The patient was identified as Paty Gale. She identified the operative site as the right elbow and the right hip. I marked with my initials. A preop surgical time-out was performed before each portion of the surgical procedure. She was taken to the operating room and positioned supine on the hospital bed. Anesthesia was administered. She was transferred to the fracture table. The left leg was placed into the well leg george. Torso was secured to the table. The right leg was placed in gentle longitudinal positioning without significant traction. Slight internal rotation was utilized and the fracture was noted to be anatomically aligned in both the AP and lateral planes a slight valgus impaction. She had a trace dorsalis pedis pulse on her left foot. Her foot was warm with good capillary refill. At the conclusion of the hip fracture surgery, the leg was taken out of the traction and well leg george. A padded perineal post was utilized. The torso was secured to the table. Fluoroscopic guidance was utilized. The right leg was then prepped and draped in usual sterile fashion from the hip to the knee and a shower curtain was utilized. DVT prophylaxis postoperatively will be done by placing her back on her Pradaxa using early mobility and mechanical devices. Please note that her surgery was delayed 48 hours because she is on Pradaxa and we had to wait until the effects of that blood thinner had dissipated. She received a preop dose of IV antibiotics before each portion of the procedure. Fluoroscopic guidance was utilized to localize the appropriate starting point. A 3-4 cm incision was made over the lateral proximal hip. Electrocautery was utilized down to subcutaneous tissues and IT band. The muscles were divided in line with the shaft of the femur using blunt dissection. Tissue protector was utilized and a guidepin was introduced just above the femoral neck in the center position on the lateral view and adjusted x2. Two other guide pins were introduced. One was a central and posterior, the other one was central and anterior. After appropriate positioning, lengths were determined. The outer cortices were opened with a drill and then using power and hand insertion, the screws were inserted, 7.3 cannulated screws of 185 and 85 mm in length with 60-mm thread lengths. The fracture remained aligned. Hardware was in good position. Threads were across the fracture site. Phone Counselor AP and lateral images were obtained. There was no significant bleeding. Blood loss was perhaps 10 mL. The wound was irrigated. The IT band was closed with #1 Vicryl. The skin was closed with 0 and 2-0 Vicryl and jabari on the skin. A soft sterile dressing was applied and she was taken out of the fracture table apparatus and left supine on the fracture table. A new sterile field prep and drape of the surgeon and assistants was performed. The right upper extremity was prepped and draped in usual sterile fashion after application of an upper arm tourniquet, which was not inflated during the case. The preop surgical time out was performed and dose of IV antibiotics was given. She had a large hematoma over the proximal posterior ulna. A 2-inch incision was made. The hematoma was evacuated, which is estimated to be about 75 mL to 100 mL. This area was irrigated and packed off to ensure that there was no residual bleeding and then a medium Hemovac drain was inserted exiting out distally. The skin was closed with 3-0 nylon and a soft sterile dressing was applied along with an ABD pad and a full length Chavo wrap from the hand up above the elbow. Dr. Nicole performed the right elbow procedure under my supervision. I was present for the critical portion of the procedure, which was the incision and drainage of the hematoma. The patient was then awakened from anesthesia without difficulty, taken to recovery in stable condition. There were no specimens or complications. Counts were correct at the end of the case. Blood loss was approximately 10-20 mL for the hip and 5 mL for the elbow. At the conclusion of the operation, I spoke to patient's family and informed them of my findings. Postoperative instructions were given. We will monitor the output of her drains, likely pull this tomorrow. She can start on her Pradaxa tomorrow. She can weightbear as tolerated for her hip fracture using a walker. She will have PT and OT and likely transfer to [facility] prior to heading back to her care facility. Synthes 7.3 cannulated screws were inserted. I attest to the content of the Intraoperative Record and any orders documented therein. Any exceptio ns are noted below.
[2016-11-26] MEDS ORDERED: ERGOCALCIFEROL 50,000 INTER.UNIT CAP PO ONE (18:00)
--- NOTE | 2016-11-26 18:14 | Hospitalist Progress Note ---
Hospitalist Progress Note Date of Service Nov 26, 2016. Subjective Pt evaluation today including: conversation w/ patient, physical exam, chart review, lab review, review of studies, review of inpatient medication list I saw patient earlier today prior to surgery. She was comfortable anticipating surgery. No complaints were voiced. Additional Comments: A 10 system review was performed and all were negative. Positives were placed in the subjective section. Objective Vital Signs Date Time Temp Pulse Resp B/P Pulse Ox O2 Delivery O2 Flow Rate FiO2 11/26/16 17:51 36.4 64 14 163/67 91 Nasal Cannula 2.0 11/26/16 17:20 36.5 62 134/67 94 Nasal Cannula 2.0 Humidified Air 11/26/16 17:10 61 20 162/61 95 Nasal Cannula 4 11/26/16 17:00 62 17 142/68 96 Nasal Cannula 4 11/26/16 16:50 61 15 147/85 95 Nasal Cannula 4 11/26/16 16:40 36.2 60 16 170/65 90 Nasal Cannula 4 11/26/16 16:30 61 14 193/58 87 Nasal Cannula 4 11/26/16 16:20 61 20 185/73 97 Mask 10 11/26/16 16:10 62 20 180/68 98 Mask 10 11/26/16 16:04 36.6 70 20 182/72 95 Mask 10 11/26/16 11:31 36.7 60 18 133/56 97 Room Air 11/26/16 10:00 Nasal Cannula 4.0 11/26/16 09:23 84 157/76 11/26/16 07:56 36.8 66 16 151/68 96 Nasal Cannula 2.0 Humidified Oxygen 11/26/16 07:40 Nasal Cannula 2.0 Humidified Oxygen 11/26/16 06:00 95 Nasal Cannula 2.0 Humidified Air 11/26/16 01:36 66 135/68 11/25/16 23:31 36.5 63 16 166/73 97 Nasal Cannula 4.0 Humidified Air 11/25/16 23:30 Nasal Cannula 4.0 Humidified Oxygen Physical Exam Notes: GEN: Awake, alert. Not in acute distress HEENT: Tm's intact, no inflammation, EOMI, PERRLA, MMM Neck: Soft, supple Lungs: CTA b/l, no r/r/w Heart: REG, nrl S1S2 without murmurs, rubs or gallops Abdomen: Soft, NT, ND, + BS EXT: No C/C/E right elbow with wrapping in place. NEURO: CN's II-XII grossly intact, non-focal Skin: warm, dry, no rashes PSYCH: pleasant, cooperative. Laboratory Results Last 24 Hours Test 11/25/16 20:48 11/26/16 05:32 11/26/16 05:58 11/26/16 11:16 Bedside Glucose 160 mg/dl 165 mg/dl 157 mg/dl White Blood Count 8.97 K/uL Red Blood Count 3.65 M/uL Hemoglobin 10.8 g/dL Hematocrit 32.7 % Mean Corpuscular Volume 89.6 fL Mean Corpuscular Hemoglobin 29.6 pg Mean Corpuscular Hemoglobin Concent 33.0 g/dl Platelet Count 250 K/uL Mean Platelet Volume 10.2 fL Neutrophils (%) (Auto) 74.4 % Lymphocytes (%) (Auto) 11.6 % Monocytes (%) (Auto) 12.0 % Eosinophils (%) (Auto) 1.4 % Basophils (%) (Auto) 0.3 % Neutrophils # (Auto) 6.66 K/uL Lymphocytes # (Auto) 1.04 K/uL Monocytes # (Auto) 1.08 K/uL Eosinophils # (Auto) 0.13 K/uL Basophils # (Auto) 0.03 K/uL RDW Standard Deviation 45.6 fL RDW Coefficient of Variation 13.9 % Immature Granulocyte % (Auto) 0.3 % Immature Granulocyte # (Auto) 0.03 K/uL Activated Partial Thromboplast Time 31.5 SECONDS Partial Thromboplastin Ratio 1.2 Sodium Level 136 mmol/L Potassium Level 4.1 mmol/L Chloride Level 101 mmol/L Carbon Dioxide Level 27 mmol/L Anion Gap 8.0 mmol/L Blood Urea Nitrogen 12 mg/dl Creatinine 0.83 mg/dl Est Creatinine Clear Calc Drug Dose 37.7 ml/min Estimated GFR () 73.5 Estimated GFR (Non- 63.4 BUN/Creatinine Ratio 14.3 Random Glucose 155 mg/dl Calcium Level 8.9 mg/dl Assessment and Plan 1) Post-op day #0 s/p Irrigation, debridement, and evacuation of right elbow hematoma and closed reduction percutaneous pinning of nondisplaced right hip fracture. 2) UTI - Treating with IV Rocephin, awaiting urine culture results. 3) A. Flutter - rate has been stable. Has pacer. Continue Dig, Lopressor and Cardizem CD. Resume Pradaxa, ordered already by ortho. 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 5) HTN - will watch in the post-op period. DVT prophylaxis: Taking Pradaxa.
--- NOTE | 2016-11-26 18:22 | Orthopedic Progress Note ---
Orthopedic Progress Note Date of Service Nov 26, 2016. Subjective Reports: feeling well, pain controlled w PO medications, Denies: SOB, calf pain , complaints, light headedness, nausea / vomiting Additional Notes: States that her hip feels "much better". Objective calves soft nontender, N/V intact, capillary refill less than 2 sec., dressing C /D/I (right elbow and right hip), A&O x3, toes mobile Hemovac functioning. Tolerates gentle active assisted ROM right elbow,wrist and fingers. Date Time Temp Pulse Resp B/P Pulse Ox O2 Delivery O2 Flow Rate FiO2 11/26/16 17:51 36.4 64 14 163/67 91 Nasal Cannula 2.0 11/26/16 17:20 36.5 62 134/67 94 Nasal Cannula 2.0 Humidified Air 11/26/16 17:10 61 20 162/61 95 Nasal Cannula 4 11/26/16 17:00 62 17 142/68 96 Nasal Cannula 4 11/26/16 16:50 61 15 147/85 95 Nasal Cannula 4 11/26/16 16:40 36.2 60 16 170/65 90 Nasal Cannula 4 11/26/16 16:30 61 14 193/58 87 Nasal Cannula 4 11/26/16 16:20 61 20 185/73 97 Mask 10 11/26/16 16:10 62 20 180/68 98 Mask 10 11/26/16 16:04 36.6 70 20 182/72 95 Mask 10 11/26/16 11:31 36.7 60 18 133/56 97 Room Air 11/26/16 10:00 Nasal Cannula 4.0 11/26/16 09:23 84 157/76 11/26/16 07:56 36.8 66 16 151/68 96 Nasal Cannula 2.0 Humidified Oxygen 11/26/16 07:40 Nasal Cannula 2.0 Humidified Oxygen 11/26/16 06:00 95 Nasal Cannula 2.0 Humidified Air 11/26/16 01:36 66 135/68 11/25/16 23:31 36.5 63 16 166/73 97 Nasal Cannula 4.0 Humidified Air 11/25/16 23:30 Nasal Cannula 4.0 Humidified Oxygen Laboratory Results 24 Hours: Test 11/26/16 05:32 White Blood Count 8.97 K/uL Red Blood Count 3.65 M/uL Hemoglobin 10.8 g/dL Hematocrit 32.7 % Mean Corpuscular Volume 89.6 fL Mean Corpuscular Hemoglobin 29.6 pg Mean Corpuscular Hemoglobin Concent 33.0 g/dl Platelet Count 250 K/uL Mean Platelet Volume 10.2 fL Neutrophils (%) (Auto) 74.4 % Lymphocytes (%) (Auto) 11.6 % Monocytes (%) (Auto) 12.0 % Eosinophils (%) (Auto) 1.4 % Basophils (%) (Auto) 0.3 % Neutrophils # (Auto) 6.66 K/uL Lymphocytes # (Auto) 1.04 K/uL Monocytes # (Auto) 1.08 K/uL Eosinophils # (Auto) 0.13 K/uL Basophils # (Auto) 0.03 K/uL Assessment & Plan Assessment: 1. Contusion with hematoma right elbow/forearm - s/p evacuation of hematoma 2. Right subcapital hip fracture - s/p ORIF Plan: Allowed for activities as tolerated right arm. Apply ice to right elbow as needed for pain/swelling. Keep right arm elevated on pillows to prevent swelling. PT consult for AM She may WBAT on right lower extremity and right arm with the assistance of a walker. Resume Pradaxa on 11/27/16 SCD's bilateral lower extremities Will obtain Vitmain D level in Am with morning labs. Resume regular diet. Pain medication as prescribed. Will discuss findings with Dr. Edwards. Recheck in AM.
[2016-11-26] MEDS: CEFAZOLIN IV 1,000 MG in DEXTROSE 5% 50ML 50 ML IV SCH (21:04)
[2016-11-27] VITALS (9 sets, daily range): BP systolic 110–174; BP diastolic 61–84; PULSE 60–73; TEMP 36.3–36.8; O2SAT 90–97
[2016-11-27] MEDS: SODIUM CHLOR 0.45% + 20MEQ KCL 1,000 ML IV SCH ×2 (04:04→13:12)
[2016-11-27] MEDS: CEFAZOLIN IV 1,000 MG in DEXTROSE 5% 50ML 50 ML IV SCH (04:05)
[2016-11-27] MEDS: LEVOTHYROXINE 150 MCG TAB PO SCH (05:48)
[2016-11-27 07:26] LABS: BASO % 0.2 %; BASO ABS # 0.02 K/uL (0-0.2); COMPLETE YES; EOS % 0.9 %; HEMATOCRIT 32.3 % (37-47); IG% 0.3 %; LYMPH % 10.7 %; LYMPH ABS # 1.08 K/uL (1.2-3.4); MEAN CELL VOLUME 89.2 fL (80-100); MEAN CORPUSCULAR HEMOGLOBIN 30.1 pg (25-34); MEAN CORPUSCULAR HGB CONC 33.7 g/dl (32-36); MEAN PLATELET VOLUME 10.3 fL (7.4-10.4); MONO % 11.2 %; NEUT % 76.7 %; PLATELET COUNT 281 K/uL (130-400); RED BLOOD COUNT 3.62 M/uL (4.2-5.4); WHITE BLOOD COUNT 10.12 K/uL (4.8-10.8)
[2016-11-27 07:58] LABS: CALCIUM 9.3 mg/dl (8.5-10.1); CREATININE 0.87 mg/dl (0.60-1.20); POTASSIUM 4.4 mmol/L (3.5-5.1)
--- NOTE | 2016-11-27 08:09 | Orthopedic Progress Note ---
Orthopedic Progress Note Date of Service Nov 27, 2016. Subjective Post OP Day: 1 Denies: SOB, calf pain, chest pain, light headedness, nausea / vomiting Additional Notes: States "not doing well" today. Having pain in right arm and right hip. Sleeping in bed. Objective calves soft nontender, N/V intact, capillary refill less than 2 sec., dressing C /D/I (ANKITA bandage on right arm re-wrapped, dressings intact otherwise, hemovac functioning. Able to wiggle fingers, tolerates passive ROM of right wrist and fingers and elbow. Distal pulse 1+, minimal distal edema into right hand.), toes mobile, hemovac drainage (25ml thru last night.) Awakened for exam, able to answer questions appropriately but slow to answer and doesn't open eyes. Pain with palpation generalized throughout entire right leg, pain with palpation or attempt at movement of left leg Date Time Temp Pulse Resp B/P Pulse Ox O2 Delivery O2 Flow Rate FiO2 11/27/16 07:38 36.5 63 17 168/71 90 Nasal Cannula 3.0 11/27/16 03:54 36.4 67 16 152/71 92 Nasal Cannula 4.0 Humidified Air 11/27/16 00:00 Nasal Cannula 2.0 Humidified Air 11/26/16 23:27 36.5 61 14 148/73 98 Nasal Cannula 2.0 Humidified Air 11/26/16 20:20 36.6 60 14 147/72 92 Nasal Cannula 2.0 11/26/16 19:20 36.6 67 14 148/70 92 Nasal Cannula 2.0 11/26/16 18:20 36.7 65 16 162/71 95 Nasal Cannula 2.0 11/26/16 17:51 36.4 64 14 163/67 91 Nasal Cannula 2.0 11/26/16 17:30 94 Nasal Cannula 2.0 Humidified Oxygen 11/26/16 17:30 Nasal Cannula 2.0 11/26/16 17:20 36.5 62 134/67 94 Nasal Cannula 2.0 Humidified Air 11/26/16 17:10 61 20 162/61 95 Nasal Cannula 4 11/26/16 17:00 62 17 142/68 96 Nasal Cannula 4 11/26/16 16:50 61 15 147/85 95 Nasal Cannula 4 11/26/16 16:40 36.2 60 16 170/65 90 Nasal Cannula 4 11/26/16 16:30 61 14 193/58 87 Nasal Cannula 4 11/26/16 16:20 61 20 185/73 97 Mask 10 11/26/16 16:10 62 20 180/68 98 Mask 10 11/26/16 16:04 36.6 70 20 182/72 95 Mask 10 11/26/16 11:31 36.7 60 18 133/56 97 Room Air 11/26/16 10:00 Nasal Cannula 4.0 11/26/16 09:23 84 157/76 Laboratory Results 24 Hours: Test 11/27/16 07:04 White Blood Count 10.12 K/uL Red Blood Count 3.62 M/uL Hemoglobin 10.9 g/dL Hematocrit 32.3 % Mean Corpuscular Volume 89.2 fL Mean Corpuscular Hemoglobin 30.1 pg Mean Corpuscular Hemoglobin Concent 33.7 g/dl Platelet Count 281 K/uL Mean Platelet Volume 10.3 fL Neutrophils (%) (Auto) 76.7 % Lymphocytes (%) (Auto) 10.7 % Monocytes (%) (Auto) 11.2 % Eosinophils (%) (Auto) 0.9 % Basophils (%) (Auto) 0.2 % Neutrophils # (Auto) 7.77 K/uL Lymphocytes # (Auto) 1.08 K/uL Monocytes # (Auto) 1.13 K/uL Eosinophils # (Auto) 0.09 K/uL Basophils # (Auto) 0.02 K/uL Assessment & Plan Assessment: 1. Contusion with hematoma right elbow/forearm - s/p evacuation of hematoma- POD 1 2. Right subcapital hip fracture - s/p ORIF - POD 1 Plan: Allowed for activities as tolerated right arm. Apply ice to right elbow as needed for pain/swelling. Keep right arm elevated on pillows to prevent swelling. PT evaluation today She may WBAT on right lower extremity and right arm with the assistance of a walker. Resume Pradaxa today SCD's bilateral lower extremities Vitamin D level pending. H/H stable Tolerating regular diet Pain medication as prescribed. Will discuss findings with Dr. Edwards. Will return this afternoon to recheck and pull hemovac drain from right forearm.
[2016-11-27] MEDS ORDERED: HydrALAZINE HCL 20 MG/ML VIAL IV. PRN (08:45)
[2016-11-27] MEDS: LOPERAMIDE HCL 2 MG CAP PO SCH (09:00)
[2016-11-27] MEDS: PANTOprazole SOD 40 MG TAB PO SCH (09:33)
[2016-11-27] MEDS: METOPROLOL TARTRATE 100 MG TAB PO SCH ×2 (09:33→21:50)
[2016-11-27] MEDS: CEROVITE ADV FORMULA TAB PO SCH ×2 (09:34→21:49)
[2016-11-27] MEDS: ESCITALOPRAM OXALATE 10 MG TAB PO SCH (09:34)
[2016-11-27] MEDS: DABIGATRAN ELEXILATE 75 MG CAP PO SCH ×2 (09:34→21:49)
[2016-11-27] MEDS: DIGOXIN 0.125 MG TAB PO SCH (09:35)
[2016-11-27] MEDS: MAGNESIUM OXIDE 400 MG TAB PO SCH ×2 (09:35→21:49)
[2016-11-27] MEDS: DILTIAZEM HCL 120 MG CAPCR PO SCH (09:36)
[2016-11-27] MEDS: CHOLECALCIFEROL 1000 INTER.UNIT TAB PO SCH (09:36)
[2016-11-27] MEDS: INSULIN ASPART 100 UNITS/ML 3 ML PEN SC SCH ×4 (09:47→21:00)
[2016-11-27] MEDS: TRAMADOL HCL 50 MG TAB PO PRN ×2 (13:08→22:05)
[2016-11-27] MEDS: HydrALAZINE HCL 20 MG/ML VIAL IV. PRN (13:09)
[2016-11-27] MEDS: CEFTRIAXONE SOD INJ 1 GM in DEXTROSE 5% ADD-VANTAGE 50ML 50 ML IV SCH (13:12)
--- NOTE | 2016-11-27 14:12 | ECHOCARDIOGRAM REPORT ---
*NOTICE TO RECEIVING DEMOCRAT AGENCY This information is strictly Confidential and protected under [place] law. [place] law prohibits you from making any further disclosure of this information unless further disclosure is expressly permitted by the written consent of the person to whom it pertains or is authorized by law. A general authorization for the release of medical or other information is not sufficient for this purpose. Hospital accepts no responsibility if the information is made available to any other person, INCLUDING THE PATIENT. Interpretation Summary * Name: FRANCISCO KAPADIA Study Date: 11/27/2016 07:11 AM BP: 152/71 mmHg * Patient Location: [facility]\S\W354\S\1 HR: 66 * : 1930 (M/d/yyyy) Gender: Female Height: 64 in * Age: 86 yrs Ethnicity: [place] Weight: 110 lb * Ordering Physician: Lucero Mathew * Referring Physician: Self, Referred * Performed By: Arlette Greenberg, [facility] * * Reason For Study: FALL / HX A-FIB * BSA: 1.5 m2 * -- Conclusions -- * Aortic valve sclerosis mild, without significant aortic valvular stenosis. * The left ventricle is normal in size. * There is normal left ventricular wall thickness. * Left ventricular systolic function is normal. * Ejection Fraction = 50-55%. * The right ventricular systolic function is normal. * The left atrium is severely dilated. * The right atrium is severely dilated. * There is moderate mitral regurgitation. * There is moderate tricuspid regurgitation. Procedure Details * A complete two-dimensional transthoracic echocardiogram was performed (2D, M-mode, Doppler and color flow Doppler). * There were technical limitations due to patient'spoor positioning Left Ventricle * The left ventricle is normal in size. * There is normal left ventricular wall thickness. * Ejection Fraction = 50-55%. * Left ventricular systolic function is normal. Right Ventricle * The right ventricle is normal size. * There is a pacemaker lead in the right ventricle. * The right ventricular systolic function is normal. Atria * The left atrium is severely dilated. * The right atrium is severely dilated. Mitral Valve * There is moderate to severe mitral annular calcification. * The mitral valve leaflets appear thickened, but open well. * There is moderate mitral regurgitation. Tricuspid Valve * The tricuspid valve is not well visualized, but is grossly normal. * There is moderate tricuspid regurgitation. Aortic Valve * Aortic valve sclerosis mild, without significant aortic valvular stenosis. * There is no significant aortic regurgitation. Pulmonic Valve * The pulmonic valve is not well visualized. Great Vessels * The aortic root and proximal ascending aorta are normal sized. Pericardium/Pleural * There is no pericardial effusion. MMode 2D Measurements and Calculations IVSd 1.2 cm IVSs 1.5 cm LVIDd 4.1 cm LVIDs 3.1 cm LVPWd 0.91 cm LVPWs 1.3 cm IVS/LVPW 1.3 FS 25.1 % EDV(Teich) 74.2 ml ESV(Teich) 37.1 ml EF(Teich) 50.1 % EDV(cubed) 68.9 ml ESV(cubed) 29.0 ml EF(cubed) 58.0 % % IVS thick 26.3 % % LVPW thick 40.9 % LV mass(C)d 142.9 grams LV mass(C)dI 94.2 grams/m\S\2 LV mass(C)s 145.2 grams LV mass(C)sI 95.7 grams/m\S\2 SV(Teich) 37.2 ml SI(Teich) 24.5 ml/m\S\2 SV(cubed) 39.9 ml SI(cubed) 26.3 ml/m\S\2 Ao root diam 2.3 cm Ao root area 4.3 cm\S\2 ACS 1.6 cm LA dimension 2.8 cm LA/Ao 1.2 LVAd ap4 24.1 cm\S\2 LVLd ap4 6.7 cm EDV(MOD-sp4) 70.7 ml EDV(sp4-el) 73.6 ml LVAs ap4 15.1 cm\S\2 LVLs ap4 5.8 cm ESV(MOD-sp4) 32.5 ml ESV(sp4-el) 33.4 ml EF(MOD-sp4) 54.0 % EF(sp4-el) 54.6 % LVAd ap2 23.5 cm\S\2 LVLd ap2 6.4 cm EDV(MOD-sp2) 72.2 ml EDV(sp2-el) 73.5 ml LVAs ap2 16.4 cm\S\2 LVLs ap2 6.1 cm ESV(MOD-sp2) 35.9 ml ESV(sp2-el) 37.4 ml EF(MOD-sp2) 50.3 % EF(sp2-el) 49.1 % LVLd %diff -5.12 % EDV(MOD-bp) 74.1 ml LVLs %diff 4.9 % ESV(MOD-bp) 34.9 ml EF(MOD-bp) 53.0 % SV(MOD-sp4) 38.2 ml SI(MOD-sp4) 25.2 ml/m\S\2 SV(MOD-sp2) 36.3 ml SI(MOD-sp2) 24.0 ml/m\S\2 SV(MOD-bp) 39.2 ml SI(MOD-bp) 25.9 ml/m\S\2 SV(sp4-el) 40.2 ml SI(sp4-el) 26.5 ml/m\S\2 SV(sp2-el) 36.1 ml SI(sp2-el) 23.8 ml/m\S\2 Doppler Measurements and Calculations MV E max tevin 124.0 cm/sec MV P1/2t max tevin 165.6 cm/sec MV P1/2t 51.4 msec MVA(P1/2t) 4.3 cm\S\2 MV dec slope 944.5 cm/sec\S\2 MV dec time 0.20 sec Ao V2 max 128.1 cm/sec Ao max PG 6.6 mmHg Ao max PG (full) 4.5 mmHg LV V1 max PG 2.1 mmHg LV V1 max 72.3 cm/sec MR max tevin 540.2 cm/sec MR max PG 116.7 mmHg PA V2 max 92.5 cm/sec PA max PG 3.4 mmHg PI max tevin 177.2 cm/sec PI max PG 12.6 mmHg PI dec slope 171.7 cm/sec\S\2 PI P1/2t 302.3 msec TR max tevin 400.3 cm/sec
[2016-11-27] MEDS ORDERED: LANTUS PER UNIT CHARGE SQ ONE (14:15)
--- NOTE | 2016-11-27 14:26 | Pharmacy Progress Note ---
Glycemic Control: Progress Nt Date of Service Nov 27, 2016. Scope Glycemic Pharmacist consulted by Dr Frazier on 11/25/16 for glycemic control and to write orders per [facility] inpatient glycemic control protocol. Objective Accuchecks BSG (last 24hrs): Test 11/26/16 16:07 11/26/16 20:47 11/27/16 07:04 11/27/16 08:15 Bedside Glucose 187 mg/dl (70-90) 211 mg/dl (70-90) 195 mg/dl (70-90) Random Glucose 205 mg/dl (70-99) Test 11/27/16 11:29 Bedside Glucose 197 mg/dl (70-90) Laboratory Data (last 24hrs) Test 11/27/16 07:04 Anion Gap 9.0 mmol/L BUN/Creatinine Ratio 12.0 Blood Urea Nitrogen 10 mg/dl Creatinine 0.87 mg/dl Potassium Level 4.4 mmol/L Sodium Level 132 mmol/L White Blood Count 10.12 K/uL Red Blood Count 3.62 M/uL Hemoglobin 10.9 g/dL Hematocrit 32.3 % Mean Corpuscular Volume 89.2 fL Mean Corpuscular Hemoglobin 30.1 pg Mean Corpuscular Hemoglobin Concent 33.7 g/dl Platelet Count 281 K/uL Mean Platelet Volume 10.3 fL Neutrophils (%) (Auto) 76.7 % Lymphocytes (%) (Auto) 10.7 % Monocytes (%) (Auto) 11.2 % Eosinophils (%) (Auto) 0.9 % Basophils (%) (Auto) 0.2 % Neutrophils # (Auto) 7.77 K/uL Lymphocytes # (Auto) 1.08 K/uL Monocytes # (Auto) 1.13 K/uL Eosinophils # (Auto) 0.09 K/uL Basophils # (Auto) 0.02 K/uL HbA1c: Test 11/24/16 16:24 Hemoglobin A1c 6.6 % (4.5-5.6) H Recent Pertinent Medications Outpatient Anti-diabetic Regimen: * Metformin 850 mg PO BIDM * A1c = 6.6 % 11/24/16 The patient is currently receiving: * Correctional Insulin: Novolog Correction per scale ACHS Goal Range: Low 140 mg/dL - High 180 mg/dL Correction Factor: 30 mg/dL/unit * Prandial insulin: Per carb ratio of 1 unit per 0 grams CHO consumed Risk Factors for Insulin Resistance: * Infection * Recent Surgery * Diet Assessment & Plan ASSESSMENT: 11/25/16 * 86yo T2DM female with adequately controlled diabetes per recent A1c * Despite adequate control, outpatient regimen of metformin may need adjusted at the time of discharge d/t renal impairment. Metformin should not be used with CrCl < 30ml/min * Pt may not need any outpatient anti-diabetic regimen at discharge as A1c is below goal based on age/co-morbidities * BSGs adequately controlled since admission with correctional insulin only * Pt is scheduled for ortho surgery tomorrow AM --> will be NPO after midnight * BSGs may increase s/p surgery d/t stress &/or UTI/infection * ADA & AACE recommend a goal blood sugar range 140-180 mg/dl for the majority of critically ill & non-critically ill patients. However, more stringent targets may be selected in individual cases. 11/27/16 * Pt received a total of 3 units over the past 24 hours * BSGs ranging 165-211 mg/dL * Since last 3 BSGs have been ~200 mg/dL, initiate one time dose of Lantus ( weight-based, stress of 2) * Initiate loose carb ratio as BSGs slowly trending up * Reevaluate in the AM PLAN FOR INPATIENT GLYCEMIC CONTROL: * Hold outpatient oral diabetes medications * Give LANTUS 10 units X 1, re-evaluate need for additional dosing in the AM * NOVOLOG per scale ACHS or Q6hrs while NPO * Goal Range: Low 140 mg/dL - High 180 mg/dL * Correction Factor: 30 mg/dL/unit * Start Nutritional / Prandial insulin per carb ratio of 1 unit per 20 grams CHO consumed * Please note that the plan above was derived based on current level of insulin resistance and hospital stress. These recommendations are appropriate for inpatient admission only. Plan of care upon discharge will need to be reassessed to avoid potential outpatient hypo/hyperglycemia. Thank you.
--- NOTE | 2016-11-27 15:20 | PROGRESS NOTE ---
DATE: 11/27/2016 DATE: 11/27/2016. SUBJECTIVE: She is resting comfortably in bed. Afebrile. Vital signs are stable. Urine output is adequate. Tejeda will be discontinued. Hematocrit 32. Her vitamin D level is low and will be replaced. Her urine culture was negative. She has warm foot with 1+ dorsalis pedis. She very faintly wiggles the toes on both of her feet but does not comply with a gross movement and strength exam. She is somnolent but arousable. She is oriented to person but not to place or time. She responds to questions appropriately and follows commands to do an exam on both upper extremities. She moves her arms well. She did pull her drain out of the right arm. She has intact median, radial and ulnar motor and sensory functions. IMPRESSION: Right hip fracture, right elbow hematoma. PLAN: She is doing well. I think she probably is experiencing some lingering effects of pain medication causing some oversedation. I spoke with nursing and they will try to use nonnarcotic measures to address her pain. She does not have any facial drooping. Her Pradaxa has been restarted. We will check her elbow wound tomorrow. She can weightbear as tolerated with a walker. She will likely need rehab.
--- NOTE | 2016-11-27 18:49 | Hospitalist Progress Note ---
Hospitalist Progress Note Date of Service Nov 27, 2016. Subjective Pt evaluation today including: conversation w/ patient, physical exam, chart review, lab review, review of studies, review of inpatient medication list When I was to see patient this am (around 0920) she was awake. Although a bit slower to speak and respond than prior to surgery, she remembered me and was answering questions. There were a few things she seemed confused, but not out of what I usually see after an 86 y/o female has surgery and few dose of pain medication. The patient declined pain, chest pain, SOB, Cough. Nursing reported that the daughter visited around 2pm and felt her mother was to sedate and confused. Vitals were fine. I came to visit the patient within 30 mins and daughter had left, but felt less concerned when nursing relayed by assessment earlier and that it not unusual for patients of advanced age to take some time at getting back to their usual mentation. Additional Comments: A 10 system review was performed and all were negative. Positives were placed in the subjective section. Objective Vital Signs Date Time Temp Pulse Resp B/P Pulse Ox O2 Delivery O2 Flow Rate FiO2 11/27/16 15:25 36.3 60 14 110/61 97 Nasal Cannula 3.0 Humidified Oxygen 11/27/16 13:00 64 174/84 11/27/16 11:09 36.3 63 17 160/77 94 Nasal Cannula 3.0 11/27/16 09:35 72 153/79 11/27/16 09:35 72 11/27/16 07:38 36.5 63 17 168/71 90 Nasal Cannula 3.0 11/27/16 07:30 Nasal Cannula 3.0 Humidified Oxygen 11/27/16 03:54 36.4 67 16 152/71 92 Nasal Cannula 4.0 Humidified Air 11/27/16 00:00 Nasal Cannula 2.0 Humidified Air 11/26/16 23:27 36.5 61 14 148/73 98 Nasal Cannula 2.0 Humidified Air 11/26/16 20:20 36.6 60 14 147/72 92 Nasal Cannula 2.0 11/26/16 19:20 36.6 67 14 148/70 92 Nasal Cannula 2.0 Physical Exam Notes: GEN: Awake, alert. Not in acute distress HEENT: Tm's intact, no inflammation, EOMI, PERRLA, MMM Neck: Soft, supple Lungs: CTA b/l, no r/r/w Heart: REG, nrl S1S2 without murmurs, rubs or gallops Abdomen: Soft, NT, ND, + BS EXT: No C/C/E Right arm is dressed with drain in place. NEURO: CN's II-XII grossly intact, non-focal Skin: warm, dry, no rashes PSYCH: followed commands, pleasant. Laboratory Results Last 24 Hours Test 11/26/16 20:47 11/27/16 07:04 11/27/16 08:15 11/27/16 11:29 Bedside Glucose 211 mg/dl 195 mg/dl 197 mg/dl White Blood Count 10.12 K/uL Red Blood Count 3.62 M/uL Hemoglobin 10.9 g/dL Hematocrit 32.3 % Mean Corpuscular Volume 89.2 fL Mean Corpuscular Hemoglobin 30.1 pg Mean Corpuscular Hemoglobin Concent 33.7 g/dl Platelet Count 281 K/uL Mean Platelet Volume 10.3 fL Neutrophils (%) (Auto) 76.7 % Lymphocytes (%) (Auto) 10.7 % Monocytes (%) (Auto) 11.2 % Eosinophils (%) (Auto) 0.9 % Basophils (%) (Auto) 0.2 % Neutrophils # (Auto) 7.77 K/uL Lymphocytes # (Auto) 1.08 K/uL Monocytes # (Auto) 1.13 K/uL Eosinophils # (Auto) 0.09 K/uL Basophils # (Auto) 0.02 K/uL RDW Standard Deviation 45.4 fL RDW Coefficient of Variation 13.8 % Immature Granulocyte % (Auto) 0.3 % Immature Granulocyte # (Auto) 0.03 K/uL Sodium Level 132 mmol/L Potassium Level 4.4 mmol/L Chloride Level 96 mmol/L Carbon Dioxide Level 27 mmol/L Anion Gap 9.0 mmol/L Blood Urea Nitrogen 10 mg/dl Creatinine 0.87 mg/dl Est Creatinine Clear Calc Drug Dose 36.0 ml/min Estimated GFR () 69.4 Estimated GFR (Non- 59.9 BUN/Creatinine Ratio 12.0 Random Glucose 205 mg/dl Calcium Level 9.3 mg/dl 25-Hydroxy Vitamin D Total 19.9 ng/ml Test 11/27/16 16:36 Bedside Glucose 188 mg/dl Assessment and Plan 1) Post-op day #1 s/p evacuation of right elbow hematoma and ORIF Right hip 2) UTI - Treating with IV Rocephin, So far little growth, if culture is neg will D/C Rocephin. 3) A. Flutter - rate has been stable. Has pacer. Continue Dig, Lopressor and Cardizem CD. Pradaxa for anticoagulation. 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 5) HTN - stable, controlled, continue to follow. DVT prophylaxis: Taking Pradaxa.
[2016-11-28] VITALS (9 sets, daily range): BP systolic 137–185; BP diastolic 63–82; PULSE 69–92; TEMP 36.3–36.5; O2SAT 93–97
[2016-11-28] MEDS: SODIUM CHLOR 0.45% + 20MEQ KCL 1,000 ML IV SCH (02:34)
[2016-11-28] MEDS: LEVOTHYROXINE 150 MCG TAB PO SCH (05:42)
[2016-11-28 07:15] LABS: BASO % 0.1 %; BASO ABS # 0.01 K/uL (0-0.2); COMPLETE YES; EOS % 0.4 %; HEMATOCRIT 30.3 % (37-47); IG% 0.3 %; LYMPH % 8.3 %; LYMPH ABS # 0.92 K/uL (1.2-3.4); MEAN CELL VOLUME 87.6 fL (80-100); MEAN CORPUSCULAR HEMOGLOBIN 30.3 pg (25-34); MEAN CORPUSCULAR HGB CONC 34.7 g/dl (32-36); MEAN PLATELET VOLUME 10.3 fL (7.4-10.4); MONO % 12.8 %; NEUT % 78.1 %; PLATELET COUNT 297 K/uL (130-400); RED BLOOD COUNT 3.46 M/uL (4.2-5.4); WHITE BLOOD COUNT 11.02 K/uL (4.8-10.8)
[2016-11-28 07:49] LABS: BUN/CREATININE RATIO 13.7 (10-20); CALCIUM 8.9 mg/dl (8.5-10.1); CREATININE 0.73 mg/dl (0.60-1.20); POTASSIUM 4.1 mmol/L (3.5-5.1)
[2016-11-28] MEDS: LOPERAMIDE HCL 2 MG CAP PO SCH (09:39)
[2016-11-28] MEDS: DILTIAZEM HCL 120 MG CAPCR PO SCH (09:39)
[2016-11-28] MEDS: ESCITALOPRAM OXALATE 10 MG TAB PO SCH (09:39)
[2016-11-28] MEDS: METOPROLOL TARTRATE 100 MG TAB PO SCH ×2 (09:40→21:19)
[2016-11-28] MEDS: MAGNESIUM OXIDE 400 MG TAB PO SCH ×2 (09:41→21:08)
[2016-11-28] MEDS: CEROVITE ADV FORMULA TAB PO SCH ×2 (09:41→21:09)
[2016-11-28] MEDS: PANTOprazole SOD 40 MG TAB PO SCH (09:42)
[2016-11-28] MEDS: DABIGATRAN ELEXILATE 75 MG CAP PO SCH ×2 (09:42→21:10)
[2016-11-28] MEDS: CHOLECALCIFEROL 1000 INTER.UNIT TAB PO SCH (09:42)
[2016-11-28] MEDS: INSULIN ASPART 100 UNITS/ML 3 ML PEN SC SCH ×4 (09:50→21:14)
--- NOTE | 2016-11-28 12:10 | PROGRESS NOTE ---
DATE: 11/28/2016 The patient is out of bed, sitting in a chair. I spoke with PT and nursing. She was able to bear weight and provide some assistance with her transfer. She is having some difficulty both mentally and physically and with pain in regards to standing and ambulating. She is smiling and interactive, awake and not somnolent. She is afebrile. Her vital signs are stable. Urine output is excellent. Her white count is up to 11. Hemoglobin 11, hematocrit 30, platelet count 10. PRP noted. Sodium is a little bit low at 130, glucoses are about 190. On exam, she is awake, alert, and oriented to person and place. She knows that she is in the hospital, but does not know the date. She knows that she was knocked over and got injured, but does not know specifics about her injury. Median, radial and ulnar musculocutaneous, motor and sensory functions are intact in the right arm with a 1+ radial pulse. She has full forearm rotation. Range of elbow 0/10/130. She can reach her nose. She can reach her arm up over head, across her body and out to the side. She has some tenderness around the elbow. There are resolving hematoma blisters present. There is extensive ecchymosis about the elbow, arm and forearm. Swelling is much improved. New dressing applied with a wrap from the fingers up to above the elbow. She is able to flex and extend her ankle and toes with near normal strength. She can extend and flex her knee the same. Dorsalis pedis 1+. Sensation intact. Thigh has soft dressing changed. The incision is benign. There is no evidence of infection, swelling, or drainage. IMPRESSION: Right femoral neck fracture, nondisplaced, status post percutaneous pinning. Right elbow hematoma, status post evacuation. PLAN: She is doing well. Continue PT and OT. She can weightbear as tolerated with a walker. She will continue Pradaxa for DVT prophylaxis as well as for her cardiac problems. Her vitamin D will need to be replaced. Encourage pulmonary toilet. Her Tejeda catheter has been removed. The patient can be discharged at anytime from an orthopedic standpoint. She will need to have regular dressing changes on her right elbow. She should ambulate with a walker, weightbearing as tolerated. She should receive PT and OT. She can go to [facility] or to a alf facility. She is to follow up with me in 2 weeks in my office for wound check and suture removal. Therapy can also work on range of motion of her right arm and right leg. If there are any problems with pain, swelling, fevers, numbness or other problems or questions, please call my office.
[2016-11-28] MEDS: TRAMADOL HCL 50 MG TAB PO PRN ×2 (12:34→19:30)
--- NOTE | 2016-11-28 15:52 | Pharmacy Progress Note ---
Glycemic: Assessment & Plan Date of Service Nov 28, 2016. Assessment & Plan The patient received 17 units of insulin on 11/27. BSGs ranging 174-215 mg/dl over the past 24hrs. Rocephin and IV fluid dc'd. PO intake has not improved much , but she is starting Boost Glucose Control bid with meals. Will tighten carb ratio and reassess in am. * Basal insulin: Lantus 10 units x 1 dose * Correctional Insulin: Novolog Correction per scale ACHS Goal Range: Low 140 mg/dL - High 180 mg/dL Correction Factor: 30 mg/dL/unit * Prandial insulin: Per carb ratio of 1 unit per 16 grams CHO consumed BSGs continue to improve, no other changes needed to inpatient regimen at this time. Pharmacy will continue to monitor patient daily and write orders per [facility] inpatient glycemic control protocol. Thanks. * Please note that the plan above was derived based on current level of insulin resistance and hospital stress. These recommendations are appropriate for inpatient admission only. Plan of care upon discharge will need to be reassessed to avoid potential outpatient hypo/hyperglycemia.
[2016-11-28] MEDS: BOOST GLUCOSE CONTROL PO SCH (17:37)
--- NOTE | 2016-11-28 18:11 | Hospitalist Progress Note ---
Hospitalist Progress Note Date of Service Nov 28, 2016. Subjective Pt evaluation today including: conversation w/ patient, conversation w/ family , physical exam, chart review, lab review, review of studies, review of inpatient medication list Patient and daughter in room. Patient is much more alert and clear today. She does not have any complaints. The only pain she feels is during PT. Additional Comments: A 10 system review was performed and all were negative. Positives were placed in the subjective section. Objective Vital Signs Date Time Temp Pulse Resp B/P Pulse Ox O2 Delivery O2 Flow Rate FiO2 11/28/16 15:28 36.3 79 16 164/81 96 Room Air 11/28/16 11:40 69 16 96 Room Air 11/28/16 11:39 159/74 11/28/16 11:27 71 16 94 Room Air 11/28/16 09:38 84 185/82 11/28/16 07:15 97 Nasal Cannula 3.0 Humidified Oxygen 11/28/16 07:09 36.5 92 16 180/76 97 3.0 11/27/16 23:25 Nasal Cannula 3.0 Humidified Oxygen 11/27/16 23:03 36.8 71 15 156/76 97 Nasal Cannula 3.0 Humidified Oxygen 11/27/16 21:10 36.3 73 14 152/71 94 Nasal Cannula 3.0 Humidified Oxygen Physical Exam Notes: GEN: Awake, alert. Not in acute distress HEENT: Tm's intact, no inflammation, EOMI, PERRLA, MMM Neck: Soft, supple Lungs: CTA b/l, no r/r/w Heart: REG, nrl S1S2 without murmurs, rubs or gallops has pacer. Abdomen: Soft, NT, ND, + BS EXT: No C/C/E NEURO: CN's II-XII grossly intact, non-focal Skin: warm, dry, no rashes PSYCH: pleasant, cooperative. mildly confused. Laboratory Results Last 24 Hours Test 11/27/16 20:47 11/28/16 06:15 11/28/16 07:32 11/28/16 12:18 Bedside Glucose 174 mg/dl 192 mg/dl 215 mg/dl White Blood Count 11.02 K/uL Red Blood Count 3.46 M/uL Hemoglobin 10.5 g/dL Hematocrit 30.3 % Mean Corpuscular Volume 87.6 fL Mean Corpuscular Hemoglobin 30.3 pg Mean Corpuscular Hemoglobin Concent 34.7 g/dl Platelet Count 297 K/uL Mean Platelet Volume 10.3 fL Neutrophils (%) (Auto) 78.1 % Lymphocytes (%) (Auto) 8.3 % Monocytes (%) (Auto) 12.8 % Eosinophils (%) (Auto) 0.4 % Basophils (%) (Auto) 0.1 % Neutrophils # (Auto) 8.61 K/uL Lymphocytes # (Auto) 0.92 K/uL Monocytes # (Auto) 1.41 K/uL Eosinophils # (Auto) 0.04 K/uL Basophils # (Auto) 0.01 K/uL RDW Standard Deviation 44.5 fL RDW Coefficient of Variation 13.9 % Immature Granulocyte % (Auto) 0.3 % Immature Granulocyte # (Auto) 0.03 K/uL Sodium Level 130 mmol/L Potassium Level 4.1 mmol/L Chloride Level 94 mmol/L Carbon Dioxide Level 25 mmol/L Anion Gap 11.0 mmol/L Blood Urea Nitrogen 10 mg/dl Creatinine 0.73 mg/dl Est Creatinine Clear Calc Drug Dose 42.9 ml/min Estimated GFR () 85.8 Estimated GFR (Non- 74.1 BUN/Creatinine Ratio 13.7 Random Glucose 183 mg/dl Calcium Level 8.9 mg/dl Assessment and Plan 1) Post-op day #2 s/p evacuation of right elbow hematoma and ORIF Right hip 2) UTI - This was ruled out. 3) A. Flutter - rate has been stable. Has pacer. Continue Dig, Lopressor and Cardizem CD. Pradaxa for anticoagulation. 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 5) HTN - stable, controlled, continue to follow. DVT prophylaxis: Taking Pradaxa. Can go to [facility] when bed available.
[2016-11-28] MEDS: ACETAMINOPHEN 325 MG TAB PO PRN (19:30)
[2016-11-29] MEDS: LEVOTHYROXINE 150 MCG TAB PO SCH (05:38)
[2016-11-29 07:05] LABS: MAGNESIUM 2.1 mg/dl (1.8-2.4); PHOSPHORUS 2.6 mg/dl (2.5-4.9)
[2016-11-29 07:10] VITALS: O2SAT 95
[2016-11-29 07:22] VITALS: BP 178/76; PULSE 80; TEMP 36.6; O2SAT 95
[2016-11-29 09:05] VITALS: BP 149/76; PULSE 84
[2016-11-29] MEDS: DILTIAZEM HCL 120 MG CAPCR PO SCH (09:06)
[2016-11-29] MEDS: METOPROLOL TARTRATE 100 MG TAB PO SCH ×2 (09:06→20:45)
[2016-11-29] MEDS: PANTOprazole SOD 40 MG TAB PO SCH (09:07)
[2016-11-29] MEDS: MAGNESIUM OXIDE 400 MG TAB PO SCH ×2 (09:07→20:45)
[2016-11-29] MEDS: CHOLECALCIFEROL 1000 INTER.UNIT TAB PO SCH (09:07)
[2016-11-29] MEDS: ESCITALOPRAM OXALATE 10 MG TAB PO SCH (09:08)
[2016-11-29] MEDS: DABIGATRAN ELEXILATE 75 MG CAP PO SCH ×2 (09:08→20:46)
[2016-11-29] MEDS: CEROVITE ADV FORMULA TAB PO SCH ×2 (09:08→20:46)
[2016-11-29] MEDS: LOPERAMIDE HCL 2 MG CAP PO SCH (09:08)
[2016-11-29] MEDS: BOOST GLUCOSE CONTROL PO SCH ×2 (09:13→18:46)
[2016-11-29] MEDS: INSULIN ASPART 100 UNITS/ML 3 ML PEN SC SCH ×4 (09:19→20:49)
[2016-11-29] MEDS: TRAMADOL HCL 50 MG TAB PO PRN ×2 (09:27→20:53)
[2016-11-29 16:08] VITALS: BP 164/72; PULSE 74; TEMP 36.8; O2SAT 95
--- NOTE | 2016-11-29 17:21 | Hospitalist Progress Note ---
Hospitalist Progress Note Date of Service Nov 29, 2016. Subjective Pt evaluation today including: conversation w/ patient, physical exam, chart review, lab review, review of studies, review of inpatient medication list Patient looks better each day. She has no new complaints or concerns. Additional Comments: A 10 system review was performed and all were negative. Positives were placed in the subjective section. Objective Vital Signs Date Time Temp Pulse Resp B/P Pulse Ox O2 Delivery O2 Flow Rate FiO2 11/29/16 16:08 36.8 74 18 164/72 95 Room Air 11/29/16 11:05 Room Air 11/29/16 09:05 84 149/76 11/29/16 07:22 36.6 80 16 178/76 95 Room Air 11/29/16 07:10 95 Room Air 11/28/16 23:43 Room Air 11/28/16 23:05 36.4 69 16 138/69 93 Room Air 11/28/16 20:00 Room Air 11/28/16 19:03 137/63 Physical Exam Notes: GEN: Awake, alert. Not in acute distress HEENT: EOMI, PERRLA, MMM Neck: Soft, supple Lungs: CTA b/l, no r/r/w Heart: REG, nrl S1S2 without murmurs, rubs or gallops Abdomen: Soft, NT, ND, + BS EXT: No C/C/E NEURO: CN's II-XII grossly intact, non-focal Skin: warm, dry, no rashes PSYCH: pleasant. Laboratory Results Last 24 Hours Test 11/28/16 17:28 11/28/16 20:48 11/29/16 06:20 11/29/16 08:05 Bedside Glucose 138 mg/dl 243 mg/dl 186 mg/dl Phosphorus Level 2.6 mg/dl Magnesium Level 2.1 mg/dl Test 11/29/16 11:48 11/29/16 17:10 Bedside Glucose 229 mg/dl 129 mg/dl Assessment and Plan 1) Post-op day #3 s/p evacuation of right elbow hematoma and ORIF Right hip - ortho is OK with discharge. 2) UTI - This was ruled out. 3) A. Flutter - rate has been stable. Has pacer. Continue Dig, Lopressor and Cardizem CD. Pradaxa for anticoagulation. 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 5) HTN - stable, controlled, continue to follow. DVT prophylaxis: Taking Pradaxa. Can go to [facility] when bed available.
[2016-11-29 23:20] VITALS: BP 154/73; PULSE 71; TEMP 36.8; O2SAT 93
[2016-11-30] MEDS: LEVOTHYROXINE 150 MCG TAB PO SCH (05:44)
[2016-11-30 07:24] VITALS: BP 183/76; PULSE 83; TEMP 36.8; O2SAT 95
[2016-11-30 07:28] LABS: ALB/GLOB RATIO 0.8 (0.9-2); BUN/CREATININE RATIO 20.8 (10-20); CALCIUM 8.6 mg/dl (8.5-10.1); CREATININE 0.77 mg/dl (0.60-1.20); POTASSIUM 3.7 mmol/L (3.5-5.1)
--- NOTE | 2016-11-30 08:23 | Discharge Instructions ---
Discharge Instructions Date of Service Nov 30, 2016. Admission Reason for Admission: Hip Fracture Discharge Discharge Diagnosis / Problem: Hematoma right elbow; right subcapital femoral fracture Discharge Goals Goal(s): Decrease discomfort, Improve function, Increase independence Activity Recommendations Activity Limitations: per Instructions/Follow-up section Weightbearing Status: Right weightbearing (as tolerated) . Instructions / Follow-Up Instructions / Follow-Up DIET: * Resume previous diet. MEDICATIONS: * Pain medication as prescribed. * If concerns develop, call your physician's office at . Dr. Edwards SPECIAL CARE INSTRUCTIONS: * Ice to right elbow and right hip as needed for pain/swelling. * Keep dressing clean, dry, intact on right hip and right elbow as needed. * Your surgical extremity may be discolored due to prepping agents used on the skin. A bluish-green tint is a normal variant and should not cause alarm. * You may weight bear as tolerated right hip and right elbow. Full range of motion allowed right hip and right elbow. Call your doctor at [phone] if: * Temperature above 101 degrees * Pain not relieved by pain medicine ordered * There is increased drainage or redness from any incision * You have any unanswered questions, problems or concerns. FOLLOW UP VISIT: * Follow up with Dr. Edwards on 12/09/16 at 3:00 p.m. Please call [phone] with questions or concerns or need to reschedule appointment. Current Hospital Diet Patient's current hospital diet: Diabetes Type 2 Diet, Low Sodium Diet (2gm Na) Discharge Diet Recommended Diet: Regular Diet Procedures Procedures Performed: Right Hip Percutaneous Pinning Evacuation Hematoma Right Arm Pending Studies Studies pending at discharge: no Laboratory Results Hemoglobin A1c Test 11/24/16 16:24 Range/Units Estimated Average Glucose 143 mg/dl Hemoglobin A1c 6.6 H 4.5-5.6 % Medical Emergencies . Who to Call and When: Medical Emergencies: If at any time you feel your situation is an emergency, please call 911 immediately. . Non-Emergent Contact Non-Emergency issues call your: Surgeon Call Non-Emergent contact if: temperature is above 101.5, your pain is not controlled, wound has increased drainage . "Provider Documentation" section prepared by Alisia Cortez. VTE Core Measure Inpt VTE Proph given/why not?: Other Anticoagulation (Pradaxa), T.E.D. Stockings, SCD's
[2016-11-30] MEDS: BOOST GLUCOSE CONTROL PO SCH (08:30)
[2016-11-30] MEDS: ESCITALOPRAM OXALATE 10 MG TAB PO SCH (08:34)
[2016-11-30] MEDS: CHOLECALCIFEROL 1000 INTER.UNIT TAB PO SCH (08:34)
[2016-11-30] MEDS: CEROVITE ADV FORMULA TAB PO SCH (08:34)
[2016-11-30] MEDS: MAGNESIUM OXIDE 400 MG TAB PO SCH (08:35)
[2016-11-30] MEDS: PANTOprazole SOD 40 MG TAB PO SCH (08:35)
[2016-11-30] MEDS: DABIGATRAN ELEXILATE 75 MG CAP PO SCH (08:35)
[2016-11-30 08:38] VITALS: BP 160/74; PULSE 81
[2016-11-30] MEDS: DILTIAZEM HCL 120 MG CAPCR PO SCH (08:42)
[2016-11-30] MEDS: DIGOXIN 0.125 MG TAB PO SCH (08:42)
[2016-11-30] MEDS: METOPROLOL TARTRATE 100 MG TAB PO SCH (08:42)
[2016-11-30] MEDS: LOPERAMIDE HCL 2 MG CAP PO SCH (08:47)
--- NOTE | 2016-11-30 08:48 | Orthopedic Progress Note ---
Orthopedic Progress Note Date of Service Nov 30, 2016. Subjective Post OP Day: 4 Reports: feeling well, pain controlled w PO medications, Denies: SOB, calf pain , chest pain, complaints, light headedness, nausea / vomiting Additional Notes: Sitting up, eating breakfast, pleasant Objective calves soft nontender, N/V intact, capillary refill less than 2 sec., dressing C /D/I (right elbow), incision C/D/I (right hip), A&O x3, toes mobile Date Time Temp Pulse Resp B/P Pulse Ox O2 Delivery O2 Flow Rate FiO2 11/30/16 08:38 81 160/74 11/30/16 07:24 36.8 83 16 183/76 95 Room Air 11/30/16 07:10 Room Air 11/29/16 23:45 Room Air 11/29/16 23:20 36.8 71 16 154/73 93 Room Air 11/29/16 17:00 Room Air 11/29/16 16:08 36.8 74 18 164/72 95 Room Air 11/29/16 11:05 Room Air 11/29/16 09:05 84 149/76 Assessment & Plan Assessment: 1. Contusion with hematoma right elbow/forearm - s/p evacuation of hematoma- POD 4 2. Right subcapital hip fracture - s/p ORIF - POD 4 Plan: Allowed for activities as tolerated right arm. Apply ice to right elbow as needed for pain/swelling. Keep right arm elevated on pillows to prevent swelling. Continue PT She may WBAT on right lower extremity and right arm with the assistance of a walker. Pradaxa resumed SCD's bilateral lower extremities H/H stable Tolerating regular diet Pain medication as prescribed. Will discuss findings with Dr. Edwards. Ok from orthopaedic standpoint for discharge to [facility] when bed available. Follow up on 12/09/[address] Edwards Discharge Planning Discharge Planning: rehab hospital
[2016-11-30] MEDS ORDERED: INSULIN GLARGINE SOLOSTAR 100 UNITS/ML 3 ML PEN SC SCH (09:00)
[2016-11-30] MEDS: INSULIN ASPART 100 UNITS/ML 3 ML PEN SC SCH ×2 (09:36→13:25)
[2016-11-30] MEDS ORDERED: HYDR-5688 PO (09:52)
--- NOTE | 2016-11-30 09:56 | Discharge Instructions ---
Discharge Instructions Date of Service Nov 30, 2016. Admission Reason for Admission: Hip Fracture Discharge Discharge Diagnosis / Problem: Hip fracture/right elbow hematoma Discharge Goals Goal(s): Decrease discomfort, Improve function Activity Recommendations Activity Limitations: per Instructions/Follow-up section . Instructions / Follow-Up Instructions / Follow-Up PCP in 5-[address] Edwards (ortho) as scheduled on 12-09-16. Activity as tolerated right arm. Apply ice to right elbow as needed for pain/swelling. Keep right arm elevated on pillows to prevent swelling. Continue PT She may WBAT on right lower extremity and right arm with the assistance of a walker. Pain meds as needed. Current Hospital Diet Patient's current hospital diet: Diabetes Type 2 Diet, Low Sodium Diet (2gm Na) Discharge Diet Recommended Diet: Diabetes Type 2 Diet Procedures Procedures Performed: Right Hip Percutaneous Pinning Evacuation Hematoma Right Arm Pending Studies Studies pending at discharge: no Laboratory Results Last 24 Hours Test 11/29/16 11:48 11/29/16 17:10 11/29/16 20:39 11/30/16 06:17 Bedside Glucose 229 mg/dl 129 mg/dl 248 mg/dl Sodium Level 137 mmol/L Potassium Level 3.7 mmol/L Chloride Level 100 mmol/L Carbon Dioxide Level 27 mmol/L Anion Gap 10.0 mmol/L Blood Urea Nitrogen 16 mg/dl Creatinine 0.77 mg/dl Est Creatinine Clear Calc Drug Dose 40.6 ml/min Estimated GFR () 80.5 Estimated GFR (Non- 69.4 BUN/Creatinine Ratio 20.8 Random Glucose 160 mg/dl Calcium Level 8.6 mg/dl Total Bilirubin 0.7 mg/dl Aspartate Amino Transf (AST/SGOT) 22 U/L Alanine Aminotransferase (ALT/SGPT) 29 U/L Alkaline Phosphatase 103 U/L Total Protein 6.3 gm/dl Albumin 2.8 gm/dl Globulin 3.5 gm/dl Albumin/Globulin Ratio 0.8 Test 11/30/16 07:59 Bedside Glucose 168 mg/dl Hemoglobin A1c Test 11/24/16 16:24 Range/Units Estimated Average Glucose 143 mg/dl Hemoglobin A1c 6.6 H 4.5-5.6 % Medical Emergencies . Who to Call and When: Medical Emergencies: If at any time you feel your situation is an emergency, please call 911 immediately. . Non-Emergent Contact Non-Emergency issues call your: Primary Care Provider . . "Provider Documentation" section prepared by Dion Frazier. VTE Core Measure Inpt VTE Proph given/why not?: Other Anticoagulation (Pradaxa), T.E.DLeroy Stockings, SCD's
--- NOTE | 2016-11-30 10:01 | Pharmacy Progress Note ---
Glycemic Control: Progress Nt Date of Service Nov 30, 2016. Scope Glycemic Pharmacist consulted by Dr Frazier on 11/25/16 for glycemic control and to write orders per [facility] inpatient glycemic control protocol. Objective Accuchecks BSG (last 24hrs): Test 11/29/16 11:48 11/29/16 17:10 11/29/16 20:39 11/30/16 06:17 Bedside Glucose 229 mg/dl (70-90) 129 mg/dl (70-90) 248 mg/dl (70-90) Random Glucose 160 mg/dl (70-99) Test 11/30/16 07:59 Bedside Glucose 168 mg/dl (70-90) HbA1c: Test 11/24/16 16:24 Hemoglobin A1c 6.6 % (4.5-5.6) H Recent Pertinent Medications Outpatient Anti-diabetic Regimen: * Metformin 850mg PO BIDM The patient is currently receiving: * Basal insulin: None ordered at this time. Did receive a one time dose of 10 units on 11/27 * Correctional Insulin: Novolog Correction per scale ACHS Goal Range: Low 140 mg/dL - High 180 mg/dL Correction Factor: 30 mg/dL/unit * Prandial insulin: Per carb ratio of 1 unit per 16 grams CHO consumed * Oral Agents: On hold for admission Risk Factors for Insulin Resistance: * Infection/UTI (resolved) * Surgery 11/26/16 * Diet Assessment & Plan ASSESSMENT: * Pt has been receiving ~ 15 units of insulin per day with near-adequate control * BSGs ranging 129-248mg/dl * Pt is ordered bolus insulin only with correctional + carb coverage components * Basal insulin given x 1 on 11/27 for persistent hyperglycemia but not continued? * AM fasting BSGs are above goal range --> basal insulin needed * ADA & AACE recommend a goal blood sugar range 140-180 mg/dl for the majority of critically ill & non-critically ill patients. However, more stringent targets may be selected in individual cases. PLAN FOR INPATIENT GLYCEMIC CONTROL: * Hold outpatient oral diabetes medications * Start basal insulin for persistent hyperglycemia & increased AM fasting BSGs * Lantus 10 units SQ daily * Continue NOVOLOG per scale ACHS or Q6hrs while NPO * Goal Range: Low 140 mg/dL - High 180 mg/dL * Correction Factor: 30 mg/dL/unit * Nutritional / Prandial insulin per carb ratio of 1 unit per 16 grams CHO consumed Recommendations for discharge: * 86yo T2DM female with adequately controlled diabetes per recent A1c * Despite adequate control, outpatient regimen of metformin may need adjusted at the time of discharge d/t renal impairment. Metformin should not be used with CrCl < 30ml/min * BSGs have been elevated throughout admission d/t stress, surgery, infection. * Recommend conservative insulin regimen at discharge/transfer to rehab. * Lantus 10 units SQ daily HOLD if BSG < 140mg/dl * NovoLog per scale ACHS/Q6hrs Goal Range: Low 140 mg/dL - High 180 mg/dL Correction Factor: 30 mg/dL/unit Nutritional / Prandial insulin per carb ratio of 1 unit per 16 grams CHO consumed Thank you.
[2016-11-30 10:25] VITALS: BP 160/74; PULSE 80; TEMP 36.8; O2SAT 95
--- NOTE | 2016-11-30 20:02 | Discharge Summary ---
Discharge Summary Date of Service Nov 30, 2016. Discharge Summary Admission Date: Nov 24, 2016 at 16:23 Discharge Date: Nov 30, 2016 Discharge Disposition: Rehab Principal Diagnosis: Right hip fracture Problems/Secondary Diagnoses: Right elbow hematoma/A.fib/HTN/Type II DM Immunizations: Have You Had Influenza Vaccine: Yes Influenza Vaccine Date: Jul 08, 2012 History of Tetanus Vaccine?: No History of Pneumococcal: Yes Pneumococcal Date: Jul 08, 2011 History of Hepatitis B Vaccine: No Procedures: Irrigation, debridement, and evacuation of right elbow hematoma, closed reduction percutaneous pinning of nondisplaced right hip fracture. Consultations: Dr. Edwards - orthopedic surgeon. Medication Reconciliation New Medications: Hydrocodone/Acetaminophen 5MG/325MG ([place] 5MG/325MG) Tab 1 TAB PO Q6H PRN for Pain for 7 Days, #28 TAB 0 Refills PRN PAIN Continued Medications: Acetaminophen (Tylenol) 325 Mg Tab 650 MG PO Q6H PRN for Mild Pain or Fever, #30 TAB Calcium Carbonate (Antacid) (Tums) 500 Mg Chw 500 MG PO TID PRN for Indigestion Cholecalciferol (Vitamin D 1000 Unit) 1,000 Unit Cap 1000 INTER.UNIT PO DAILY, CAP Cyanocobalamin (Cyanocobalamin) 1,000 Mcg/Ml Inj 1000 MCG IM MONTHLY Dabigatran Etexilate Mesylate (Pradaxa) 150 Mg Cap 150 MG PO BID, CAP Digoxin (Digoxin) 0.125 Mg Tab 0.125 MG PO MWF Diltiazem Hcl Coated Beads (Diltiazem Hcl Er) 120 Mg Cap 120 MG PO DAILY, #90 Docusate Sodium (Colace) 100 Mg Cap 100 MG PO BID PRN for Constipation for 30 Days, #60 CAP Escitalopram Oxalate (Lexapro) 10 Mg Tab 10 MG PO DAILY for DEPRESSION, #30 Levothyroxine Sodium (Synthroid) 150 Mcg Tab 150 MCG PO DAILY, TAB Loperamide Hcl (Anti-Diarrheal) 2 Mg Cap 2 MG PO DAILY Magnesium Oxide (Mg Supplement (Magnesium Oxide) 400 Mg Tab 400 MG PO BID, #1 Metformin Hcl (Glucophage) 850 Mg Tab 850 MG PO BIDM, TAB Metoprolol Tartrate (Lopressor) (Lopressor) 100 Mg Tab 100 MG PO BID, TAB Multiple Vitamins W/ Minerals (I-Ruth) 1 Tab Tab 1 TAB PO BID Omeprazole (Prilosec) 40 Mg Cap 40 MG PO DAILY, CAP Discharge Exam A 10 system review was performed and all were negative. GEN: Awake, alert Not in acute distress HEENT: EOMI, PERRLA, MMM Neck: Soft, supple Lungs: CTA b/l, no r/r/w Heart: REG, nrl S1S2 without murmurs, rubs or gallops has pacemaker. Abdomen: Soft, NT, ND, + BS EXT: No C/C/E NEURO: CN's II-XII grossly intact, non-focal Skin: warm, dry, no rashes PSYCH: pleasant, cooperative. Hospital Course Patient was admitted after a ground level fall with right elbow hematoma and right hip non-displaced fracture. Allowing time for Pradaxa to clear she then under went closed pinning procedure to right hip and evacuation of right elbow hematoma. The patient did well post-op. She was restarted on her Pradaxa the day following surgery. She takes this for A.flutter and it will cover DVT prophylaxis post-op. On admit the U/A was questionable for UTI so she was given IV Rocephin until the culture results showed no UTI. She was released to [facility]. Other diagnosis during her stay are as follows. A. Flutter - rate has been stable. Has pacer. Continue Dig, Lopressor and Cardizem CD. Pradaxa for anticoagulation. Type II Dm - Pharmacy managing. HTN - stable, controlled. DVT prophylaxis: Taking Pradaxa. Total Time Spent: Greater than 30 minutes This includes examination of the patient, discharge planning, medication reconciliation, and communication with other providers. Discharge Instructions Please refer to the electronic Patient Visit Report (Discharge Instructions) for additional information. Follow-Up PCP in 5-[address] Jerry Shoemaker - as recommended on ortho discharge instructions.
== END 2016-11-30 16:11 | DRG 481 ==
LOC: ENRESERVDT → ENRESERVTM → C.EDB 13:57 → C.MSN 16:23 → C.MSW 11-25 10:26
PROVIDERS: ADMIT Hospitalist; ATTEND Hospitalist
PROC: 0JCG0ZZ Extirpation of Matter from Right Lower Arm Subcutaneous Tissue and Fascia, Open Approach (ICD-10-PCS; principal; 2016-11-26 12:15)
PROC: 0QS634Z Reposition Right Upper Femur with Internal Fixation Device, Percutaneous Approach (ICD-10-PCS; principal; 2016-11-26 12:15)
DX: S72.034A Nondisplaced midcervical fracture of right femur, initial encounter for closed fracture (principal); I48.92 Unspecified atrial flutter; S50.01XA Contusion of right elbow, initial encounter; Z95.0 Presence of cardiac pacemaker; I10 Essential (primary) hypertension; E03.9 Hypothyroidism, unspecified; E78.00 Pure hypercholesterolemia, unspecified; I48.0 Paroxysmal atrial fibrillation; H35.30 Unspecified macular degeneration; K21.9 Gastro-esophageal reflux disease without esophagitis; Z66 Do not resuscitate; Z87.891 Personal history of nicotine dependence; E11.9 Type 2 diabetes mellitus without complications; E86.0 Dehydration; F32.9 Major depressive disorder, single episode, unspecified; I48.2 Chronic atrial fibrillation; V00.838A Other accident with motorized mobility scooter, initial encounter; Y92.199 Unspecified place in other specified residential institution as the place of occurrence of the external cause; Z86.73 Personal history of transient ischemic attack (TIA), and cerebral infarction without residual deficits; Y93.01 Activity, walking, marching and hiking; S72.011A Unspecified intracapsular fracture of right femur, initial encounter for closed fracture; V00.09XA Pedestrian on foot injured in collision with other pedestrian conveyance, initial encounter; R60.0 Localized edema

== ENCOUNTER → 2016-11-24 | Outpatient (CLI) | payer OTHER ==
--- NOTE | 2016-11-24 13:15 | DIAGNOSTIC IMAGING REPORT ---
RIGHT ELBOW MIN 3 VIEWS ROUTINE CLINICAL HISTORY: Pain status post trauma COMPARISON: None. DISCUSSION: The fat pads are not displaced. No fractures or dislocations are visualized. There is moderate posterior soft tissue edema. IMPRESSION: Moderate soft tissue edema. No acute fractures are visualized. Electronically signed by: Piyush Hitchcock M.D. 11/24/2016 1:14 PM Dictated Date/Time: 11/24/2016 1:12 PM
--- NOTE | 2016-11-24 13:17 | DIAGNOSTIC IMAGING REPORT ---
RIGHT HIP UNILATERAL 2 VIEWS CLINICAL HISTORY: Right hip pain status post trauma COMPARISON: 06/01/2016 DISCUSSION: There is a subcapital right hip fracture. There is no dislocation. IMPRESSION: Subcapital right hip fracture. Electronically signed by: Piyush Hitchcock M.D. 11/24/2016 1:15 PM Dictated Date/Time: 11/24/2016 1:14 PM
== END | disposition home or self-care (01) ==
LOC: C.RAD1850 12:51
PROVIDERS: ATTEND Nurse Practitioner Family
DX: S72.011A Unspecified intracapsular fracture of right femur, initial encounter for closed fracture (principal); V00.09XA Pedestrian on foot injured in collision with other pedestrian conveyance, initial encounter; R60.0 Localized edema

== ENCOUNTER → 2016-12-09 | Outpatient (CLI) | payer OTHER ==
[~2016-12-09] MED LIST changes: +AZIT-57 PO; -CYAN3INJ IM; +CYNI1000 IM; -DIGO0.122 PO; +DILT120C68 PO; +FSM70 PO; +HYDR-5688 PO; -LEVO-217 PO; +LEVO100T7 PO; +LEVO150T PO; +LEVO88TA3 PO; +LNX125 PO; +MULT-190 PO; -MULTCAP7 PO; +MULTTAB66 PO; +SENN-91 PO
== END | disposition home or self-care (01) ==
LOC: C.RDSM 03:19
PROVIDERS: ATTEND Physical Medicine & Rehabilitation Sports Medicine
DX: S72.001A Fracture of unspecified part of neck of right femur, initial encounter for closed fracture (principal); X58.XXXA Exposure to other specified factors, initial encounter

== ENCOUNTER → 2017-01-11 | Outpatient (CLI) | payer OTHER | END | disposition home or self-care (01) | LOC: C.RDSM 14:48 | PROVIDERS: ATTEND Physical Medicine & Rehabilitation Sports Medicine | DX: S72.034D Nondisplaced midcervical fracture of right femur, subsequent encounter for closed fracture with routine healing (principal); X58.XXXD Exposure to other specified factors, subsequent encounter ==

== ENCOUNTER → 2017-01-28 | Outpatient (CLI) | payer OTHER | END | disposition home or self-care (01) | LOC: C.MAMM 15:32 | PROVIDERS: ATTEND Physical Medicine & Rehabilitation Sports Medicine | DX: M85.852 Other specified disorders of bone density and structure, left thigh (principal) ==

== ENCOUNTER → 2017-02-23 | Outpatient (CLI) | payer OTHER | END | disposition home or self-care (01) | LOC: C.RDSM 14:09 | PROVIDERS: ATTEND Physical Medicine & Rehabilitation Sports Medicine | DX: Z87.81 Personal history of (healed) traumatic fracture (principal) ==

== ENCOUNTER → 2017-03-16 | Outpatient (CLI) | payer OTHER ==
[~2017-03-16] MED LIST changes: -AZIT-57 PO; -DILT120C68 PO; -LEVO100T7 PO; -LEVO88TA3 PO; -PRVHFAIN INH; -SENN-91 PO
== END | disposition home or self-care (01) ==
LOC: C.LABWYN 17:44
PROVIDERS: ATTEND Physician Assistant
DX: E03.9 Hypothyroidism, unspecified (principal); E11.9 Type 2 diabetes mellitus without complications

== ENCOUNTER → 2017-04-15 | Outpatient (CLI) | payer OTHER ==
[2017-04-15 12:32] LABS: HEMATOCRIT 35.2 % (37-47); MEAN CORPUSCULAR HEMOGLOBIN 26.7 pg (25-34); MEAN CORPUSCULAR HGB CONC 31.8 g/dl (32-36); PLATELET COUNT 344 K/uL (130-400); RED BLOOD COUNT 4.19 M/uL (4.2-5.4); WHITE BLOOD COUNT 6.54 K/uL (4.8-10.8)
[2017-04-15 13:12] LABS: BLOOD UREA NITROGEN 15 mg/dl (7-18); BUN/CREATININE RATIO 18.1 (10-20); CALCIUM 9.4 mg/dl (8.5-10.1); CARBON DIOXIDE 26 mmol/L (21-32); CHLORIDE 105 mmol/L (98-107); CREATININE 0.85 mg/dl (0.60-1.20); GLUCOSE 128 mg/dl (70-99); MAGNESIUM 1.8 mg/dl (1.8-2.4); POTASSIUM 4.3 mmol/L (3.5-5.1); SODIUM 139 mmol/L (136-145)
== END | disposition home or self-care (01) ==
LOC: C.LABWYN 16:50
PROVIDERS: ATTEND Internal Medicine Interventional Cardiology
DX: E83.42 Hypomagnesemia (principal)

== ENCOUNTER → 2017-05-04 | Outpatient (CLI) | payer OTHER | END | disposition home or self-care (01) | LOC: C.LABWYN 13:08 | PROVIDERS: ATTEND Physician Assistant | DX: E03.9 Hypothyroidism, unspecified (principal) ==

== ENCOUNTER 2017-05-24 17:46 | Emergency (ER) | payer OTHER ==
[~2017-05-24] VITALS: Ht 160 cm; Wt 59.1 kg
[2017-05-24 17:45] VITALS: TEMP 36.6; Ht 160 cm; Wt 59.1 kg
[~2017-05-24 17:46] MED LIST changes: -FSM70 PO; -MULT-190 PO
[2017-05-24] MEDS ORDERED: SODIUM CHLORIDE 0.9% 500ML 500 ML IV STA (17:58)
[2017-05-24] MEDS ORDERED: FSM70 PO (18:21)
[2017-05-24] MEDS ORDERED: MULT-190 PO (18:21)
--- NOTE | 2017-05-24 18:36 | DIAGNOSTIC IMAGING REPORT ---
RIGHT PELVIS/UNILATERAL HIP 1 VIEW CLINICAL HISTORY: 87 years-old Female presenting with fall, back pain. TECHNIQUE: Single frontal view of the pelvis and crosstable lateral view of the right hip were obtained. COMPARISON: Plain radiographs of the right hip from 02/23/2017. FINDINGS: Three lag screw fixation across the right femoral neck, unchanged. No hardware breakage. No change in alignment. Hip joints congruent. No acute fracture of the pelvis or left hip is apparent. IMPRESSION: Three lag screw fixation across the right femoral neck without evidence of hardware complication. Electronically signed by: Werner Booth M.D. 05/24/2017 6:35 PM Dictated Date/Time: 05/24/2017 6:34 PM
--- NOTE | 2017-05-24 18:38 | DIAGNOSTIC IMAGING REPORT ---
SINGLE VIEW CHEST CLINICAL HISTORY: Fall. FINDINGS: An AP, portable, upright chest radiograph is compared to study dated 11/24/2016 and correlated with chest CT dated 06/01/2016. The examination is degraded by portable technique and patient rotation. A 2-lead cardiac pacemaker is unchanged in position and partially obscures the left upper chest. The heart is normal in size and there is atherosclerotic calcification of the thoracic aorta. The pulmonary vasculature is noncongested. Emphysema and chronic interstitial thickening are similar to previous. There is biapical scarring no airspace consolidation or large pleural effusion is identified. No pneumothorax is seen. The skeletal structures are osteopenic. The bony thorax is grossly intact. IMPRESSION: 1. A cardiac pacemaker is noted. There is no radiographic evidence of congestive failure. 2. Emphysema. No airspace consolidation or large pleural effusion is identified. Electronically signed by: Phuc Haile M.D. 05/24/2017 6:36 PM Dictated Date/Time: 05/24/2017 6:35 PM
[2017-05-24 18:56] LABS: MEAN CELL VOLUME 81.9 fL (80-100); MEAN CORPUSCULAR HEMOGLOBIN 27.2 pg (25-34); MEAN CORPUSCULAR HGB CONC 33.2 g/dl (32-36); MEAN PLATELET VOLUME 9.7 fL (7.4-10.4); PLATELET COUNT 309 K/uL (130-400); RED BLOOD COUNT 4.64 M/uL (4.2-5.4); WHITE BLOOD COUNT 12.33 K/uL (4.8-10.8)
--- NOTE | 2017-05-24 19:09 | DIAGNOSTIC IMAGING REPORT ---
CT SCAN OF THE BRAIN WITHOUT IV CONTRAST CLINICAL HISTORY: Fall. COMPARISON STUDY: CT of the brain dated 06/01/2016. TECHNIQUE: Unenhanced axial CT scan of the brain is performed from the vertex to the skull base. CT DOSE: 930.99 mGy.cm FINDINGS: Brain parenchyma: There are age-related involutional changes noting moderate patchy subcortical and periventricular microangiopathic change. There is no hemorrhage, mass effect, or evidence of acute territorial ischemia by CT criteria. 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 Rolle-white matter is preserved. No extra-axial fluid collection is seen. Ventricles, sulci, cisterns: Prominent secondary to involutional change. Intracranial vasculature: There is atherosclerotic calcification of the cavernous carotid and vertebral arteries. Small foci of intravenous gas are incidentally noted in the cavernous sinus. Calvarium: The skeletal structures are osteopenic. There is no depressed calvarial fracture. Soft tissues: Foci of gas within the right facial soft tissues are likely intravenous in location. Sinuses and mastoids: The visualized paranasal sinuses are clear. The mastoid air cells are well pneumatized. Orbits: The bony orbits are grossly intact. Bilateral ocular lens implants are noted. IMPRESSION: There is no hemorrhage, mass effect, or evidence of acute territorial ischemia by CT criteria. Electronically signed by: Phuc Haile M.D. 05/24/2017 7:08 PM Dictated Date/Time: 05/24/2017 7:05 PM
--- NOTE | 2017-05-24 19:16 | DIAGNOSTIC IMAGING REPORT ---
CT SCAN OF THE CERVICAL SPINE CLINICAL HISTORY: Fall. COMPARISON STUDY: CT scan of the cervical spine dated 08/31/2012 TECHNIQUE: CT scan of the cervical spine is performed from the skull base to the upper thoracic spine. Images are reviewed in the axial, sagittal, and coronal planes. IV contrast was not administered for this examination. A dose lowering technique was utilized adhering to the principles of ALARA. CT DOSE: Reported separately under the concurrently performed CT scan of the brain. FINDINGS: Skeletal structures: The skeletal structures are osteopenic. There is no evidence of fracture or subluxation involving the cervical spine. Vertebral body height and alignment are maintained. The odontoid process and lateral masses are intact. The atlantoaxial articulation is preserved noting productive degenerative change. The spinous processes appear intact. Small anterior osteophytes are seen throughout. There is moderate multilevel cervical spondylosis. Uncovertebral and facet arthropathy contribute to neural foraminal stenosis at most levels. Intervertebral discs: Moderate disc space narrowing is seen at C5-C6. Only mild narrowing is seen at the remaining cervical levels. Central canal: A posterior disc osteophyte complex at C5-C6 likely contributes to mild acquired compromise of the central canal. Soft tissues: The prevertebral and paraspinous soft tissues are within normal limits. Pacemaker leads are noted in the left axilla. Calvarium: The visualized calvarium at the skull base appears intact. Brain parenchyma: Partially visualized brain parenchyma the skull base is within normal limits noting age-related involutional change. Sinuses and mastoids: The visualized paranasal sinuses are clear. The mastoid air cells are well pneumatized. Lung apices: Apical scarring is observed. Upper lobe lung parenchyma is otherwise clear as visualized. IMPRESSION: 1. There is no evidence of fracture or subluxation involving the cervical spine. 2. Osteopenia and cervical spondylosis as above. Electronically signed by: Phuc Haile M.D. 05/24/2017 7:14 PM Dictated Date/Time: 05/24/2017 7:04 PM
[2017-05-24 19:29] LABS: BUN/CREATININE RATIO 22.6 (10-20); CALCIUM 9.5 mg/dl (8.5-10.1); CREATININE 0.87 mg/dl (0.60-1.20); POTASSIUM 4.4 mmol/L (3.5-5.1)
--- NOTE | 2017-05-24 19:58 | EMERGENCY ROOM VISIT NOTE ---
History Report prepared by Tc: Marcos Birch Under the Supervision of: Dr. Michael Mann D.O. First contact with patient: 17:53 Chief Complaint: FALL Stated Complaint: FALL/ BACK PAIN / [facility] History of Present Illness The patient is a 87 year old female who presents to the Emergency Room with complaints of a sudden fall occurring prior to arrival. The patient states that she got up from her chair and she fell. The patient states that she is having some back pain now. She denies any chest pain, shortness of breath, dizziness, numbness in her legs, and tingling in her legs. The patient states that she had to get helped up afterwards, and she states that she was awake the whole time and is unsure if she blacked out or not. Per the nursing notes, the patient hit her head on a stool. Source of History: patient Onset: prior to arrival Position: other (global) Quality: other (fall) Timing: other (sudden) Associated Symptoms: + back pain, No chest pain, No SOB, No numbness Review of Systems See HPI for pertinent positives & negatives. A total of 10 systems reviewed and were otherwise negative. Past Medical & Surgical Medical Problems: (1) Atrial fibrillation (2) Bronchitis (3) DIAB NAT WO COMPL, TYPE II OR UNSPEC TYPE, NOT UNCNTRLD (4) Hip fracture (5) HYPERTENSION NOS (6) HYPOTHYROIDISM NOS (7) MACULAR DEGENERATION NOS (8) PERSONAL HX OF TIA,& CEREBRAL INFARCTION W/OUT RES DEFICITS (9) PURE HYPERCHOLESTEROLEM Family History Diabetes mellitus Heart disease Myocardial infarction Social History Smoking Status: Former Smoker Alcohol Use: none Drug Use: none Marital Status: Housing Status: assisted living Occupation Status: retired Current/Historical Medications Scheduled Alendronate Sodium (Alendronate Sodium), 70 MG PO WK Cholecalciferol (Vitamin D 1000 Unit), 1,000 INTER.UNIT PO DAILY Cyanocobalamin (Cyanocobalamin), 1,000 MCG IM MONTHLY Dabigatran Etexilate Mesylate (Pradaxa), 150 MG PO BID Digoxin (Digoxin), 0.125 MG PO MWF Diltiazem Hcl Coated Beads (Diltiazem Hcl Er), 120 MG PO DAILY Escitalopram Oxalate (Lexapro), 10 MG PO DAILY Levothyroxine Sodium (Synthroid), 100 MCG PO DAILY Loperamide Hcl (Anti-Diarrheal), 2 MG PO DAILY Magnesium Oxide (Mg Supplement (Magnesium Oxide), 400 MG PO BID Metformin Hcl (Glucophage), 850 MG PO BIDM Metoprolol Tartrate (Lopressor) (Lopressor), 100 MG PO BID Multiple Vitamins W/ Minerals (I-Ruth), 1 TAB PO QAM Ocuvite Preservision (Ocuvite Preservision), 1 TAB PO BID Omeprazole (Prilosec), 40 MG PO DAILY Scheduled PRN Calcium Carbonate (Antacid) (Tums), 500 MG PO TID PRN for Indigestion Docusate Sodium (Colace), 100 MG PO BID PRN for Constipation Allergies Coded Allergies: Cantaloupe (Unverified Allergy, Intermediate, unknown, 05/24/17) Beef (Verified Allergy, Unknown, doesn't eat due to gout, 11/24/16) Penicillins (Verified Allergy, Unknown, UNSURE, 05/24/17) Codeine (Verified Adverse Reaction, Intermediate, VOMITING, 05/24/17) Physical Exam Vital Signs Date Time Temp Pulse Resp B/P (MAP) Pulse Ox O2 Delivery O2 Flow Rate FiO2 05/24/17 19:29 2.0 05/24/17 19:28 89 Room Air 05/24/17 18:40 78 18 169/98 98 Room Air 82 171/83 90 172/92 05/24/17 18:14 84 05/24/17 17:45 36.6 88 16 167/98 94 Room Air Physical Exam CONSTITUTIONAL/VITAL SIGNS: Reviewed / noted above. GENERAL: Non-toxic in appearance. INTEGUMENTARY: Warm, dry, and [place]. HEAD: Normocephalic. EYES: without scleral icterus or trauma. ENT/OROPHARYNX: clear and moist. LYMPHADENOPATHY/NECK: Some mild tenderness to the posterior cervical spine. Is supple without lymphadenopathy or meningismus. RESPIRATORY: Lungs clear and equal. CARDIOVASCULAR: Regular rate and rhythm. GI/ABDOMEN: Soft and nontender. No organomegaly or pulsatile mass. No rebound or guarding. Normal bowel sounds. EXTREMITIES: Warm and well perfused. BACK: Tenderness over the right SI joint area. No CVA tenderness. NEUROLOGICAL: Intact without focal deficits. PSYCHIATRIC: normal affect. MUSCULOSKELETAL: Normally developed with good muscle tone. Medical Decision & Procedures ER Provider Diagnostic Interpretation: Radiology results as stated below per my review and radiologist interpretation: RIGHT PELVIS/UNILATERAL HIP 1 VIEW CLINICAL HISTORY: 87 years-old Female presenting with fall, back pain. TECHNIQUE: Single frontal view of the pelvis and crosstable lateral view of the right hip were obtained. COMPARISON: Plain radiographs of the right hip from 02/23/2017. FINDINGS: Three lag screw fixation across the right femoral neck, unchanged. No hardware breakage. No change in alignment. Hip joints congruent. No acute fracture of the pelvis or left hip is apparent. IMPRESSION: Three lag screw fixation across the right femoral neck without evidence of hardware complication. Electronically signed by: Werner Booth M.D. 05/24/2017 6:35 PM Dictated Date/Time: 05/24/2017 6:[address] SCAN OF THE BRAIN WITHOUT IV CONTRAST CLINICAL HISTORY: Fall. COMPARISON STUDY: CT of the brain dated 06/01/2016. TECHNIQUE: Unenhanced axial CT scan of the brain is performed from the vertex to the skull base. CT DOSE: 930.99 mGy.cm FINDINGS: Brain parenchyma: There are age-related involutional changes noting moderate patchy subcortical and periventricular microangiopathic change. There is no hemorrhage, mass effect, or evidence of acute territorial ischemia by CT criteria. 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 Rolle-white matter is preserved. No extra-axial fluid collection is seen. Ventricles, sulci, cisterns: Prominent secondary to involutional change. Intracranial vasculature: There is atherosclerotic calcification of the cavernous carotid and vertebral arteries. Small foci of intravenous gas are incidentally noted in the cavernous sinus. Calvarium: The skeletal structures are osteopenic. There is no depressed calvarial fracture. Soft tissues: Foci of gas within the right facial soft tissues are likely intravenous in location. Sinuses and mastoids: The visualized paranasal sinuses are clear. The mastoid air cells are well pneumatized. Orbits: The bony orbits are grossly intact. Bilateral ocular lens implants are noted. IMPRESSION: There is no hemorrhage, mass effect, or evidence of acute territorial ischemia by CT criteria. Electronically signed by: Phuc Haile M.D. 05/24/2017 7:08 PM Dictated Date/Time: 05/24/2017 7:05 PM SINGLE VIEW CHEST CLINICAL HISTORY: Fall. FINDINGS: An AP, portable, upright chest radiograph is compared to study dated 11/24/2016 and correlated with chest CT dated 06/01/2016. The examination is degraded by portable technique and patient rotation. A 2-lead cardiac pacemaker is unchanged in position and partially obscures the left upper chest. The heart is normal in size and there is atherosclerotic calcification of the thoracic aorta. The pulmonary vasculature is noncongested. Emphysema and chronic interstitial thickening are similar to previous. There is biapical scarring no airspace consolidation or large pleural effusion is identified. No pneumothorax is seen. The skeletal structures are osteopenic. The bony thorax is grossly intact. IMPRESSION: 1. A cardiac pacemaker is noted. There is no radiographic evidence of congestive failure. 2. Emphysema. No airspace consolidation or large pleural effusion is identified. Electronically signed by: Phuc Haile M.D. 05/24/2017 6:36 PM Dictated Date/Time: 05/24/2017 6:[address] SCAN OF THE CERVICAL SPINE CLINICAL HISTORY: Fall. COMPARISON STUDY: CT scan of the cervical spine dated 08/31/2012 TECHNIQUE: CT scan of the cervical spine is performed from the skull base to the upper thoracic spine. Images are reviewed in the axial, sagittal, and coronal planes. IV contrast was not administered for this examination. A dose lowering technique was utilized adhering to the principles of ALARA. CT DOSE: Reported separately under the concurrently performed CT scan of the brain. FINDINGS: Skeletal structures: The skeletal structures are osteopenic. There is no evidence of fracture or subluxation involving the cervical spine. Vertebral body height and alignment are maintained. The odontoid process and lateral masses are intact. The atlantoaxial articulation is preserved noting productive degenerative change. The spinous processes appear intact. Small anterior osteophytes are seen throughout. There is moderate multilevel cervical spondylosis. Uncovertebral and facet arthropathy contribute to neural foraminal stenosis at most levels. Intervertebral discs: Moderate disc space narrowing is seen at C5-C6. Only mild narrowing is seen at the remaining cervical levels. Central canal: A posterior disc osteophyte complex at C5-C6 likely contributes to mild acquired compromise of the central canal. Soft tissues: The prevertebral and paraspinous soft tissues are within normal limits. Pacemaker leads are noted in the left axilla. Calvarium: The visualized calvarium at the skull base appears intact. Brain parenchyma: Partially visualized brain parenchyma the skull base is within normal limits noting age-related involutional change. Sinuses and mastoids: The visualized paranasal sinuses are clear. The mastoid air cells are well pneumatized. Lung apices: Apical scarring is observed. Upper lobe lung parenchyma is otherwise clear as visualized. IMPRESSION: 1. There is no evidence of fracture or subluxation involving the cervical spine. 2. Osteopenia and cervical spondylosis as above. Electronically signed by: Phuc Haile M.D. 05/24/2017 7:14 PM Dictated Date/Time: 05/24/2017 7:04 PM Laboratory Results 05/24/17 18:39 05/24/17 18:39 Test 05/24/17 18:39 Red Blood Count 4.64 M/uL (4.2-5.4) Mean Corpuscular Volume 81.9 fL (80-100) Mean Corpuscular Hemoglobin 27.2 pg (25-34) Mean Corpuscular Hemoglobin Concent 33.2 g/dl (32-36) RDW Standard Deviation 47.3 fL (36.4-46.3) RDW Coefficient of Variation 15.9 % (11.5-14.5) Mean Platelet Volume 9.7 fL (7.4-10.4) Anion Gap 10.0 mmol/L (3-11) Est Creatinine Clear Calc Drug Dose 37.0 ml/min Estimated GFR () 68.9 Estimated GFR (Non- 59.5 BUN/Creatinine Ratio 22.6 (10-20) Calcium Level 9.5 mg/dl (8.5-10.1) Chemistry Specimen Hemolysis Laboratory results as stated above per my review. Medications Administered Medications (Trade) Dose Ordered Sig/David Route Start Time Stop Time Status Last Admin Dose Admin Sodium Chloride 500 ml @ 999 mls/hr Q31M STAT IV 05/24/17 17:58 05/24/17 18:28 DC 05/24/17 17:58 999 MLS/HR ECG Indication: other (fall) Rate (beats per minute): 74 Rhythm: atrial flutter Findings: ST depression (Inferior and lateral) Comparison ECG Date: 11/24/16 Change: A-flutter has replaced atrial paced rhythm. T wave changes in inferior and lateral leads are similar. ED Course 1753: Previous medical records were reviewed. The patient was evaluated in room B9. A complete history and physical examination was performed. 175: Sodium Chloride 500 ml @ 999 mls/hr IV 1957: On reevaluation, the patient is feeling well. I discussed the results and findings with the patient. She verbalized agreement of the treatment plan. She was discharged home. Medical Decision Differential includes close head injury, intracranial bleed, facial trauma, cervical spine trauma, chest and thoracic trauma, abdominal and intra-abdominal trauma, spine neurologic trauma, extremity trauma. This is a 87-year-old female who presents to the ED with a chief complaint of a fall. The patient does not recall the events around the fall. She states that she was standing up and denies losing complete consciousness but cannot recall why she fell. She does not recall if she blacked out with standing. She normally uses a walker. It is unclear if she was using it today. The patient complains of pain in the right hip area medially posteriorly. The patient also states that she hit her head on a small chair. She was brought here from a longterm by EMS. The patient's exam revealed some mild midline cervical spine tenderness. She has tenderness over the right SI joint. There is no obvious fractures. She is in no distress. Vital signs are stable. Orthostatic vital signs are negative. She is slightly hypertensive. Family states that this is normal for her. Twelve-lead EKG reveals atrial flutter at a rate of 74. No acute injury or ectopy. Patient does have a pacemaker. CBC and PRP are unremarkable. CT scan of the head and cervical spine did not show acute traumatic process. Chest x-ray was negative for acute disease. X-ray of the pelvis and right hip did not show fracture dislocation. The patient was told results. She is felt to be stable for discharge. Medication Reconcilliation Current Medication List: was personally reviewed by me Blood Pressure Screening Patient's blood pressure: Elevated blood pressure Blood pressure disposition: Elevated BP felt to be situational Impression Primary Impression: Fall Additional Impression: Contusion of multiple sites Scribe Attestation The scribe's documentation has been prepared under my direction and personally reviewed by me in its entirety. I confirm that the note above accurately reflects all work, treatment, procedures, and medical decision making performed by me. Departure Information Dispostion Home / Self-Care Referrals [facility] (PCP) Forms HOME CARE DOCUMENTATION FORM, IMPORTANT VISIT INFORMATION Patient Instructions My [facility] Additional Instructions X-rays and CT scan did not show evidence of fracture or broken bones. Blood work was unremarkable. Take Tylenol as needed for pain. Follow-up with your doctor for further care and evaluation in 1-2 days. Return to the emergency department for worsening or new symptoms or any concerns. You have been examined and treated today on an emergency basis only. This is not a substitute for, or an effort to provide, complete comprehensive medical care. It is impossible to recognize and treat all injuries or illnesses in a single emergency department visit. It is therefore important that you follow up closely with your doctor. Call as soon as possible for an appointment. Problem Qualifiers
[2017-05-24 20:31] VITALS: BP 174/90
[2017-05-24 20:51] VITALS: PULSE 75; O2SAT 93
[2017-05-24] MEDS ORDERED: ONDANSETRON 2MG ODT PO STA (21:33)
== END 2017-05-24 21:04 | disposition home or self-care (01) ==
LOC: EDBD 17:46 → C.EDB 17:47
DX: T14.8 Other injury of unspecified body region (principal); W07.XXXA Fall from chair, initial encounter; I48.92 Unspecified atrial flutter; I10 Essential (primary) hypertension; I48.91 Unspecified atrial fibrillation; E11.9 Type 2 diabetes mellitus without complications; E78.00 Pure hypercholesterolemia, unspecified; E03.9 Hypothyroidism, unspecified; Z86.73 Personal history of transient ischemic attack (TIA), and cerebral infarction without residual deficits; Z87.81 Personal history of (healed) traumatic fracture; Z87.891 Personal history of nicotine dependence; Z79.899 Other long term (current) drug therapy; Z88.0 Allergy status to penicillin; Z88.5 Allergy status to narcotic agent; Z91.018 Allergy to other foods; Z83.3 Family history of diabetes mellitus; Z82.49 Family history of ischemic heart disease and other diseases of the circulatory system

== ENCOUNTER → 2017-06-21 | Outpatient (CLI) | payer OTHER ==
[~2017-06-21] MED LIST changes: +FSM70 PO; -HYDR-5688 PO; +MULT-190 PO; -TYL325X PO
== END | disposition home or self-care (01) ==
LOC: C.LABWYN 08:19
PROVIDERS: ATTEND Physician Assistant
DX: E03.9 Hypothyroidism, unspecified (principal); E11.9 Type 2 diabetes mellitus without complications

== ENCOUNTER 2017-07-01 07:06 | Emergency (ER) | payer OTHER ==
[~2017-07-01] VITALS: Ht 162.6 cm; Wt 65.5 kg
[~2017-07-01 07:06] MED LIST changes: -CYNI1000 IM; -DABI150C PO; -ESCI1TAB9 PO; -FSM70 PO; -LNX125 PO; -LOPE1CAP6 PO; -MAGN1TAB19 PO; -METF-383 PO; -METO100T14 PO; -MULT-190 PO; -MULTTAB66 PO; -OMEP40CA41 PO
[2017-07-01 07:15] VITALS: TEMP 36.7; Ht 162.6 cm; Wt 65.5 kg
--- NOTE | 2017-07-01 07:15 | EMERGENCY ROOM VISIT NOTE ---
History Report prepared by Tc: Kay Allen Under the Supervision of: Dr. Galo Johnson M.D. First contact with patient: 07:08 Stated Complaint: SOB/HYPERTENSION History of Present Illness The patient is an 87 year old female who presents to the Emergency Room with complaints of persistent shortness of breath that began this morning when she woke. Per nursing staff, the patient arrives via ALS from the [facility]. Nursing staff reports that the patient was also hypertensive this morning. The patient states that she feels she needs to take a deep breath. She states that she has had this in the past. The patient states that she felt fine yesterday other than developing diarrhea. She states that she has five episodes of diarrhea per day. The patient denies any fever, chills, cough, congestion, or urinary symptoms. Nursing staff reports that the patient had normal oxygen saturations. Source of History: patient, nursing staff Onset: this morning when she woke Position: other (global) Quality: other (shortness of breath) Timing: other (persistent) Associated Symptoms: + diarrhea, No fevers, No chills, No cough, No urinary symptoms Note: Associated Symptoms: hypertension Review of Systems See HPI for pertinent positives and negatives. A total of ten systems were reviewed and were otherwise negative. Past Medical & Surgical Medical Problems: (1) Atrial fibrillation (2) Bronchitis (3) DIAB NAT WO COMPL, TYPE II OR UNSPEC TYPE, NOT UNCNTRLD (4) Hip fracture (5) HYPERTENSION NOS (6) HYPOTHYROIDISM NOS (7) MACULAR DEGENERATION NOS (8) PERSONAL HX OF TIA,& CEREBRAL INFARCTION W/OUT RES DEFICITS (9) PURE HYPERCHOLESTEROLEM Family History Diabetes mellitus Heart disease Myocardial infarction Social History Smoking Status: Former Smoker Alcohol Use: none Drug Use: none Marital Status: Housing Status: assisted living Occupation Status: retired Current/Historical Medications Scheduled Alendronate Sodium (Alendronate Sodium), 70 MG PO WK Azithromycin (Azithromycin), 1 TAB PO DAILY Cyanocobalamin (Cyanocobalamin), 1,000 MCG IM MONTHLY Dabigatran Etexilate Mesylate (Pradaxa), 150 MG PO BID Digoxin (Digoxin), 0.125 MG PO MWF Diltiazem Hcl Ext Rel (Tiazac), 120 MG PO DAILY Escitalopram Oxalate (Lexapro), 10 MG PO DAILY Levothyroxine Sodium (Levothyroxine Sodium), 100 MCG PO DAILY Levothyroxine Sodium (Levothyroxine Sodium), 1 TAB PO DAILY Loperamide Hcl (Anti-Diarrheal), 2 MG PO DAILY Magnesium Oxide (Mg Supplement (Magnesium Oxide), 400 MG PO BID Metformin Hcl (Glucophage), 850 MG PO BIDM Metoprolol Tartrate (Lopressor) (Lopressor), 100 MG PO BID Multiple Vitamins W/ Minerals (I-Ruth), 1 TAB PO QAM Ocuvite Preservision (Ocuvite Preservision), 1 TAB PO BID Omeprazole (Prilosec), 40 MG PO DAILY Scheduled PRN Albuterol (Ventolin Hfa), 2 PUFFS INH QID PRN for Wheezing Sennosides-Docusate Sodium (Senna S), 1 TAB PO DAILY PRN for Constipation Allergies Coded Allergies: Cantaloupe (Unverified Allergy, Intermediate, unknown, 07/01/17) Beef (Verified Allergy, Unknown, doesn't eat due to gout, 07/01/17) Penicillins (Verified Allergy, Unknown, UNSURE, 07/01/17) Codeine (Verified Adverse Reaction, Intermediate, VOMITING, 07/01/17) Physical Exam Vital Signs Date Time Temp Pulse Resp B/P (MAP) Pulse Ox O2 Delivery O2 Flow Rate FiO2 07/01/17 17:15 68 16 146/86 96 07/01/17 14:57 72 18 146/59 94 Room Air 07/01/17 14:03 70 16 172/69 94 Room Air 07/01/17 12:54 68 18 182/70 95 Room Air 8.0 07/01/17 12:29 64 16 177/73 95 Room Air 07/01/17 12:05 67 07/01/17 11:50 68 18 176/67 96 Room Air 07/01/17 11:01 183/73 07/01/17 10:59 60 20 194/73 100 Nebulizer 07/01/17 10:49 62 16 175/72 100 Nebulizer 8.0 07/01/17 10:18 60 169/110 96 07/01/17 08:55 62 162/77 92 Room Air 07/01/17 08:23 64 16 182/67 94 Room Air 07/01/17 08:04 62 07/01/17 07:45 66 07/01/17 07:15 36.7 68 16 194/82 94 Room Air Physical Exam GENERAL: Awake, alert, well-appearing, in no distress HENT: Normocephalic, atraumatic. Dry mucous membranes. EYES: Normal conjunctiva. Sclera non-icteric. NECK: Supple. No nuchal rigidity. FROM. No JVD. RESPIRATORY: Scant intermittent wheezes but otherwise clear to auscultation. CARDIAC: Regular rate, normal rhythm. Extremities warm and well perfused. Pulses equal. ABDOMEN: Soft, non-distended. No tenderness to palpation. No rebound or guarding. No masses. RECTAL: Deferred. MUSCULOSKELETAL: Chest examination reveals no tenderness. The back is symmetrical on inspection without obvious abnormality. There is no CVA tenderness to palpation. No joint edema. LOWER EXTREMITIES: Calves are equal size bilaterally and non-tender. No edema. No discoloration. NEURO: Normal sensorium. No sensory or motor deficits noted. SKIN: No rash or jaundice noted. Medical Decision & Procedures ER Provider Diagnostic Interpretation: X-ray: Per my interpretation, radiologist review. CHEST ONE VIEW PORTABLE CLINICAL HISTORY: ABDOMINAL PAIN/GI pain. Nausea. COMPARISON STUDY: 05/24/2017 FINDINGS: Mild stable emphysematous change. Permanent bipolar cardiac pacer and leads in good position. No focal infiltrate. Diaphragms are smooth. Minimal chronic atelectatic change left lateral costophrenic angle. IMPRESSION: Chronic and postoperative change. No acute process. The above report was generated using voice recognition software. It may contain grammatical, syntax or spelling errors. Electronically signed by: Cliff Dunn M.D. 07/01/2017 8:10 AM Dictated Date/Time: 07/01/2017 8:09 AM Laboratory Results 07/01/17 07:30 Red Blood Count 4.61, Mean Corpuscular Volume 82.0, Mean Corpuscular Hemoglobin 26.5, Mean Corpuscular Hemoglobin Concent 32.3, Mean Platelet Volume 9.3, Neutrophils (%) (Auto) 66.3, Lymphocytes (%) (Auto) 25.0, Monocytes (%) (Auto) 7.5, Eosinophils (%) (Auto) 0.7, Basophils (%) (Auto) 0.5, Neutrophils # (Auto) 4.83, Lymphocytes # (Auto) 1.82, Monocytes # (Auto) 0.55, Eosinophils # (Auto) 0.05, Basophils # (Auto) 0.04 07/01/17 07:30 Test 07/01/17 07:30 07/01/17 07:43 07/01/17 10:10 07/01/17 12:51 White Blood Count 7.29 K/uL (4.8-10.8) Red Blood Count 4.61 M/uL (4.2-5.4) Hemoglobin 12.2 g/dL (12.0-16.0) Hematocrit 37.8 % (37-47) Mean Corpuscular Volume 82.0 fL (80-100) Mean Corpuscular Hemoglobin 26.5 pg (25-34) Mean Corpuscular Hemoglobin Concent 32.3 g/dl (32-36) Platelet Count 291 K/uL (130-400) Mean Platelet Volume 9.3 fL (7.4-10.4) Neutrophils (%) (Auto) 66.3 % Lymphocytes (%) (Auto) 25.0 % Monocytes (%) (Auto) 7.5 % Eosinophils (%) (Auto) 0.7 % Basophils (%) (Auto) 0.5 % Neutrophils # (Auto) 4.83 K/uL (1.4-6.5) Lymphocytes # (Auto) 1.82 K/uL (1.2-3.4) Monocytes # (Auto) 0.55 K/uL (0.11-0.59) Eosinophils # (Auto) 0.05 K/uL (0-0.5) Basophils # (Auto) 0.04 K/uL (0-0.2) RDW Standard Deviation 48.4 fL (36.4-46.3) RDW Coefficient of Variation 16.1 % (11.5-14.5) Immature Granulocyte % (Auto) 0.0 % Immature Granulocyte # (Auto) 0.00 K/uL (0.00-0.02) Anion Gap 9.0 mmol/L (3-11) Est Creatinine Clear Calc Drug Dose 42.0 ml/min Estimated GFR () 76.3 Estimated GFR (Non- 65.8 BUN/Creatinine Ratio 20.1 (10-20) Calcium Level 9.2 mg/dl (8.5-10.1) Magnesium Level 1.7 mg/dl (1.8-2.4) Total Bilirubin 0.3 mg/dl (0.2-1) Direct Bilirubin < 0.1 mg/dl (0-0.2) Aspartate Amino Transf (AST/SGOT) 12 U/L (15-37) Alanine Aminotransferase (ALT/SGPT) 12 U/L (12-78) Alkaline Phosphatase 70 U/L (45-117) Pro-B-Type Natriuretic Peptide 1193 pg/ml (0-1800) Total Protein 7.3 gm/dl (6.4-8.2) Albumin 3.8 gm/dl (3.4-5.0) Lipase 141 U/L (73-393) Digoxin Level 0.5 ng/ml (0.8-2.0) Influenza Type A (RT-PCR) Neg for Influ A (NEG) Influenza Type A Antigen Neg for Influ A (NEG) Influenza Type B Antigen Neg for Influ B (NEG) Influenza Type B (RT-PCR) Neg for Influ B (NEG) Urine Color YELLOW Urine Appearance CLEAR (CLEAR) Urine pH 8.5 (4.5-7.5) Urine Specific [place] 1.010 (1.000-1.030) Urine Protein NEG (NEG) Urine Glucose (UA) NEG (NEG) Urine Ketones NEG (NEG) Urine Occult Blood NEG (NEG) Urine Nitrite NEG (NEG) Urine Bilirubin NEG (NEG) Urine Urobilinogen NEG (NEG) Urine Leukocyte Esterase SMALL (NEG) Urine WBC (Auto) 1-5 /hpf (0-5) Urine RBC (Auto) 0-4 /hpf (0-4) Urine Hyaline Casts (Auto) 0 /lpf (0-5) Urine Epithelial Cells (Auto) 10-20 /lpf (0-5) Urine Bacteria (Auto) 1+ (NEG) Urine Yeast (Auto) BUDDING (NONE PRSENT) Troponin I < 0.015 ng/ml (0-0.045) Date/Time Source Procedure Growth Status 07/01/17 10:10 Urine , Clean Catch Urine Culture - Final MORE THAN THREE TYPES OF ORGANISMS MI... Complete Laboratory results reviewed by me Medications Administered Medications (Trade) Dose Ordered Sig/David Route Start Time Stop Time Status Last Admin Dose Admin Albuterol/ Ipratropium (Duoneb) 3 ml NOW STAT INH 07/01/17 09:48 07/01/17 09:52 DC 07/01/17 10:47 3 ML Albuterol/ Ipratropium (Duoneb) 3 ml NOW STAT INH 07/01/17 09:48 07/01/17 09:52 DC 07/01/17 11:01 3 ML Magnesium Sulfate (Magnesium Sulfate) 2 gm NOW STAT IV 07/01/17 09:48 07/01/17 09:52 DC 07/01/17 10:33 2 GM Sodium Chloride 500 ml @ 125 mls/hr Q4H STAT IV 07/01/17 09:48 07/01/17 13:49 DC 07/01/17 10:32 125 MLS/HR Azithromycin (Zithromax Tab) 500 mg NOW ONCE PO 07/01/17 13:00 07/01/17 13:01 DC 07/01/17 12:55 500 MG ECG Indication: SOB/dyspnea Rate (beats per minute): 66 Rhythm: normal sinus Findings: nonspecific-ST abn (Lateral), no acute ischemic change, other ( normal axis) Comparison ECG Date: 05/24/17 Change: When compared to EKG done on 05/24/17, normal sinus rhythm has replaced atrial flutter, while the nonspecific ST abnormalities laterally are similar. Repeat EKG shows normal sinus rhythm, rate of 65 beats per minute, normal axis, no ischemia, nonspecific ST T wave abnormalities, similar to EKG #1. ED Course 0709: The patient was evaluated in room A11B. A complete history and physical exam was performed. 0948: Ordered Sodium Chloride 500 ml @ 125 mls/hr IV, Magnesium Sulfate 2 gm IV , DuoNeb 3 ml INH, DuoNeb 3 ml INH. 1117: I reevaluated the patient and she is feeling better. I discussed the exam findings with her and I discussed the treatment plan. She verbalized complete understanding and agreement. 1211: I reevaluated the patient and she notes that she has developed chest pain. She is going to have a repeat troponin and repeat EKG. 1300: Ordered Azithromycin 500 mg PO. Medical Decision I reviewed the patient's past medical history, medications, and the nursing notes as described above. The patient's presentation and history were concerning for Dehydration, electrolyte abnormality, pneumonia, bronchitis, UTI, CHF, PE. The patient is a 79-year-old woman who presents emergency Department with sensation of dyspnea since this morning in the setting of diarrhea 2 days per history of present illness. On arrival the patient is relatively well- appearing in no acute distress. She is afebrile with stable vital signs. Non- labored breathing and clear lungs. EKG unremarkable. Labs unremarkable. Trop negative x 2. Given no EKG or trop changes > 6hrs from sx, acs not likely. Moreover mild wheezing on exam with improvement with neb. Treated for bronchitis with nebs and azithro. Findings and plan for follow-up reviewed with patient. Patient agreeable and d/c'd per discharge instructions. Medication Reconcilliation Current Medication List: was personally reviewed by me Blood Pressure Screening Patient's blood pressure: Elevated blood pressure Blood pressure disposition: Referred to PCP Impression Primary Impression: Bronchitis Scribe Attestation The scribe's documentation has been prepared under my direction and personally reviewed by me in its entirety. I confirm that the note above accurately reflects all work, treatment, procedures, and medical decision making performed by me. Departure Information Dispostion Home / Self-Care Prescriptions Albuterol (Ventolin Hfa) 60 Puffs/5400 Mcg Aers 2 PUFFS INH QID Y for Wheezing for 5 Days, #1 INHALER Prov: Galo Johnson M.D. 07/01/17 Azithromycin (Azithromycin) 250 Mg Tab 1 TAB PO DAILY for 4 Days, #4 TABS Prov: Galo Johnson M.D. 07/01/17 Referrals [facility] (PCP) Forms HOME CARE DOCUMENTATION FORM, IMPORTANT VISIT INFORMATION, WORK / SCHOOL INSTRUCTIONS Patient Instructions Bronchitis Acute, My [facility] Additional Instructions Please follow up with your primary care physician and rn care manager next week for re-evaluation. You likely have a bronchitis Otherwise, your exam, EKG, chest xray, and lab results did not show signs of an emergent condition at this time. Azithromycin as directed. Albuterol for cough or wheezing as directed as needed. Return to the emergency department for worsening symptoms as described in the accompanying instructions.
[2017-07-01] MEDS ORDERED: DILT120C68 PO (07:36)
[2017-07-01] MEDS ORDERED: LEVO100T7 PO (07:39)
[2017-07-01] MEDS ORDERED: LEVO88TA3 PO (07:40)
[2017-07-01] MEDS ORDERED: SENN-91 PO (07:43)
[2017-07-01 07:44] LABS: BASO % 0.5 %; BASO ABS # 0.04 K/uL (0-0.2); COMPLETE YES; EOS % 0.7 %; HEMATOCRIT 37.8 % (37-47); LYMPH ABS # 1.82 K/uL (1.2-3.4); MEAN CORPUSCULAR HEMOGLOBIN 26.5 pg (25-34); MEAN CORPUSCULAR HGB CONC 32.3 g/dl (32-36); MEAN PLATELET VOLUME 9.3 fL (7.4-10.4); MONO % 7.5 %; NEUT % 66.3 %; PLATELET COUNT 291 K/uL (130-400); RED BLOOD COUNT 4.61 M/uL (4.2-5.4); WHITE BLOOD COUNT 7.29 K/uL (4.8-10.8)
[2017-07-01 07:59] LABS: BLOOD UREA NITROGEN 16 mg/dl (7-18); GLUCOSE 134 mg/dl (70-99)
[2017-07-01 08:00] LABS: ALT/SGPT 12 U/L (12-78); BUN/CREATININE RATIO 20.1 (10-20); CALCIUM 9.2 mg/dl (8.5-10.1); CARBON DIOXIDE 27 mmol/L (21-32); CHLORIDE 102 mmol/L (98-107); MAGNESIUM 1.7 mg/dl (1.8-2.4); SODIUM 138 mmol/L (136-145)
[2017-07-01 08:05] LABS: ALKALINE PHOSPHATASE 70 U/L (45-117); AST/SGOT 12 U/L (15-37)
--- NOTE | 2017-07-01 08:12 | DIAGNOSTIC IMAGING REPORT ---
CHEST ONE VIEW PORTABLE CLINICAL HISTORY: ABDOMINAL PAIN/GI pain. Nausea. COMPARISON STUDY: 05/24/2017 FINDINGS: Mild stable emphysematous change. Permanent bipolar cardiac pacer and leads in good position. No focal infiltrate. Diaphragms are smooth. Minimal chronic atelectatic change left lateral costophrenic angle. IMPRESSION: Chronic and postoperative change. No acute process. The above report was generated using voice recognition software. It may contain grammatical, syntax or spelling errors. Electronically signed by: Cliff Dunn M.D. 07/01/2017 8:10 AM Dictated Date/Time: 07/01/2017 8:09 AM
[2017-07-01] MEDS ORDERED: LOPE1CAP6 PO (08:33)
[2017-07-01] MEDS ORDERED: OMEP40CA41 PO (08:33)
[2017-07-01 09:22] LABS: INFLUENZA A PCR Neg for Influ A (NEG); INFLUENZA B PCR Neg for Influ B (NEG)
[2017-07-01] MEDS ORDERED: ALBUT/IPRATROP 3MG/0.5MG NEB 3 ML VIAL INH STA ×2 (09:48)
[2017-07-01] MEDS ORDERED: SODIUM CHLORIDE 0.9% 500ML 500 ML IV STA (09:48)
[2017-07-01] MEDS ORDERED: MAGNESIUM SULFATE 1GM / D5W 1 GM BAG IV STA (09:48)
[2017-07-01] MEDS ORDERED: ESCI1TAB9 PO (10:31)
[2017-07-01] MEDS ORDERED: MAGN1TAB19 PO (10:40)
[2017-07-01] MEDS ORDERED: METO100T14 PO (10:40)
[2017-07-01 10:53] LABS: URINE APPEARANCE CLEAR (CLEAR); URINE BILIRUBIN NEG (NEG); URINE COLOR YELLOW; URINE NITRITE NEG (NEG); URINE PH 8.5 (4.5-7.5); UROBILINOGEN NEG (NEG); ZZUR CULT IF INDIC CLEAN CATCH YES
[2017-07-01] MEDS ORDERED: DABI150C PO (10:58)
[2017-07-01 11:26] LABS: MANUAL MICROSCOPIC REQUIRED? NO; REVIEW REQ? YES
[2017-07-01] MEDS ORDERED: AZITHROMYCIN 250 MG TAB PO ONE (13:00)
[2017-07-01] MEDS ORDERED: AZIT-57 PO (14:59)
[2017-07-01] MEDS ORDERED: PRVHFAIN INH (15:01)
[2017-07-01] MEDS ORDERED: MULTTAB66 PO (15:11)
[2017-07-01] MEDS ORDERED: CYNI1000 IM (15:11)
[2017-07-01] MEDS ORDERED: LNX125 PO (15:11)
[2017-07-01 17:15] VITALS: BP 146/86; PULSE 68; O2SAT 96
[2017-07-01] MEDS ORDERED: FSM70 PO (18:21)
[2017-07-01] MEDS ORDERED: MULT-190 PO (18:21)
[2017-07-01] MEDS ORDERED: METF-383 PO (18:30)
== END 2017-07-01 17:16 | disposition home or self-care (01) ==
LOC: EDBD 07:06 → C.EDA 07:09
DX: J40 Bronchitis, not specified as acute or chronic (principal); R06.02 Shortness of breath; Z79.899 Other long term (current) drug therapy; I10 Essential (primary) hypertension; E11.9 Type 2 diabetes mellitus without complications; E03.9 Hypothyroidism, unspecified; Z86.73 Personal history of transient ischemic attack (TIA), and cerebral infarction without residual deficits; Z87.891 Personal history of nicotine dependence

== ENCOUNTER → 2017-07-27 | Outpatient (CLI) | payer OTHER ==
[~2017-07-27] MED LIST changes: +AZIT-57 PO; -CALC500C3 PO; -CHOL100027 PO; +CYNI1000 IM; +DABI150C PO; -DILT120C PO; +DILT120C68 PO; -DOCU-94 PO; +ESCI1TAB9 PO; +FSM70 PO; +LEVO100T7 PO; -LEVO150T PO; +LEVO88TA3 PO; +LNX125 PO; +LOPE1CAP6 PO; +MAGN1TAB19 PO; +METF-383 PO; +METO100T14 PO; +MULT-190 PO; +MULTTAB66 PO; +OMEP40CA41 PO; +SENN-91 PO
[2017-07-27 13:06] LABS: ESTIMATED AVERAGE GLUCOSE 146 mg/dl; HA1C FLAG Normal (Normal)
[2017-07-27 13:14] LABS: ALT/SGPT 15 U/L (12-78); AST/SGOT 13 U/L (15-37); BLOOD UREA NITROGEN 18 mg/dl (7-18); BUN/CREATININE RATIO 25.4 (10-20); CALCIUM 8.7 mg/dl (8.5-10.1); CARBON DIOXIDE 25 mmol/L (21-32); CHLORIDE 103 mmol/L (98-107); CHOLESTEROL 152 mg/dl (0-200); CREATININE 0.72 mg/dl (0.60-1.20); GLUCOSE 123 mg/dl (70-99); POTASSIUM 4.3 mmol/L (3.5-5.1); SODIUM 139 mmol/L (136-145); TRIGLYCERIDES 199 mg/dl (0-150); VERY LOW DENSITY LIPOPROT CALC 40 mg/dl
[2017-07-27 13:24] LABS: ALKALINE PHOSPHATASE 61 U/L (45-117); CHOLESTEROL/HDL RATIO 4.6; HDL CHOLESTEROL 33 mg/dl; LDL CHOLESTEROL CALCULATED 79 mg/dl
== END | disposition home or self-care (01) ==
LOC: C.LABWYN 12:09
PROVIDERS: ATTEND Physician Assistant
DX: E11.9 Type 2 diabetes mellitus without complications (principal)

== ENCOUNTER → 2017-08-24 | Outpatient (CLI) | payer OTHER ==
[~2017-08-24] MED LIST changes: +ACET-1256 PO; +ARTIOIN OP; +BLOOD SUGAR CHECK; +CALC500C50; +CHOL1CAP27 PO; +GLC/500 PO; +LOPE2CAP; +POLY335025; +RANI150T3 PO; +SENN1TAB80; +SENN8.6T96 PO; +VNTHFA/IN INH
== END | disposition home or self-care (01) ==
LOC: C.LABWYN 14:06
PROVIDERS: ATTEND Physician Assistant
DX: E03.9 Hypothyroidism, unspecified (principal)

== ENCOUNTER → 2018-01-27 | Outpatient (CLI) | payer OTHER ==
[~2018-01-27] MED LIST changes: -ACET-1256 PO; -ARTIOIN OP; -BLOOD SUGAR CHECK; -CALC500C50; -CHOL1CAP27 PO; -GLC/500 PO; -LOPE2CAP; -POLY335025; -RANI150T3 PO; -SENN1TAB80; -SENN8.6T96 PO; -VNTHFA/IN INH
[2018-01-27 14:27] LABS: ALBUMIN 3.8 gm/dl (3.4-5.0); BLOOD UREA NITROGEN 12 mg/dl (7-18); CALCIUM 9.2 mg/dl (8.5-10.1); CARBON DIOXIDE 29 mmol/L (21-32); CREATININE 0.95 mg/dl (0.60-1.20); GLUCOSE 139 mg/dl (70-99); POTASSIUM 4.4 mmol/L (3.5-5.1); SODIUM 136 mmol/L (136-145); TOTAL PROTEIN 8.1 gm/dl (6.4-8.2)
[2018-01-27 14:28] LABS: ALKALINE PHOSPHATASE 71 U/L (45-117); ALT/SGPT 20 U/L (12-78); AST/SGOT 18 U/L (15-37)
[2018-01-28 06:35] LABS: HEMOGLOBIN A1C 7.2 % (4.5-5.6)
== END | disposition home or self-care (01) ==
LOC: C.LABWYN 18:01
PROVIDERS: ATTEND Physician Assistant
DX: E11.9 Type 2 diabetes mellitus without complications (principal); E03.9 Hypothyroidism, unspecified